=== PATIENT | male | born 1990 | race Caucasian/White ===

== ENCOUNTER 2018-03-02 10:16 | Emergency (ER) | payer SELFPAY ==
[2018-03-02 10:18] VITALS: BP 146/83; PULSE 85; RESP 17; TEMP 36.4; O2SAT 96; BMI 26.5
[2018-03-02] MEDS: 0.9% Normal Saline 1,000 ML 1000 ML IV (10:43)
[2018-03-02] MEDS: Ondansetron 4 MG/2 ML Vial IV (10:43)
[2018-03-02 11:03] LABS: Absolute Neutrophil Count 4.2 X10^3/uL (2.0-7.7); Basophil# 0.01 X10^3/uL; Basophil% 0.2 % (0-1); Eosinophil# 0.14 X10^3/uL; Eosinophils% 2.3 % (0-5); Hematocrit 49.1 % (40-54); Hemoglobin 17.4 g/dl (13.0-16.5); Lymphocyte % 19.9 % (19-41); Mean Corp Hgb Conc 35.4 g/gl (32-36); Mean Corpuscular Hgb 31.5 pg (27.0-32.0); Mean Corpuscular Volume 88.9 fL (80-94); Mean Platelet Vol. 9.1 fl (6.2-12.0); Monocyte# 0.45 X10^3/uL; Monocyte% 7.5 % (0-10); Neutrophil # 4.21 X10^3/uL (2.7-7.7); Neutrophil % 69.9 % (47-70); Platelet Count 182 K/mm3 (150-450); RBC Distribution Width CV 12.7 % (11.6-14.6); RBC Distribution Width SD 41.3 fl (35.1-43.9); Red Blood Count 5.52 M/mm3 (4.6-6.2)
[2018-03-02 11:09] LABS: POSITIVE COUNT NO; POSITIVE DIFFERENTIAL NO; POSITIVE MORPHOLOGY NO
[2018-03-02 11:15] LABS: ALB/GLOB Ratio 1.2 RATIO (0.9-2.4); AST(SGOT) 19 U/L (15-37); Alanine Aminotransfer ALT/SGPT 29 U/L (16-61); Albumin, Serum 4.3 g/dL (3.2-5.0); Alkaline Phosphatase 57 U/L (45-117); Anion Gap 6 (5-15); BUN 9 mg/dL (7-18); Chloride 106 mmol/L (98-107); Creatinine, Serum 1.13 mg/dL (0.70-1.30); EST Glomerular Filtration Rate 84 mL/min (>60); Est Glom Filt Rate - Afr Amer 102 mL/min (>60); Estimated Creatinine Clearance 90.18 ml/min; Globulin 3.7 g/dL (2.2-4.2); Glucose 130 mg/dL (74-106); Lipase 786 U/L (73-393); Potassium 4.1 mmol/L (3.5-5.1); Sodium Level 143 mmol/L (136-145)
--- NOTE | 2018-03-02 11:21 | CT_ITS ---
STUDY: CT ABDOMEN AND PELVIS WITH CONTRAST REASON FOR EXAM: Male, 27 years old. Abdominal pain. Nausea and vomiting. RADIATION DOSAGE (If Supplied By Facility): CTDIvol = ( 11.09 ) mGy, DLP = ( 434.87 ) mGycm TECHNIQUE: Transaxial images were obtained from the dome of the diaphragm to the symphysis pubis without oral contrast. 100 ml of Isovue 300 contrast was administered. Sagittal and coronal images were reconstructed. Individualized dose optimization techniques were used for this CT. COMPARISON: None. FINDINGS: The visualized lung bases are unremarkable. The visualized portions of the heart are within normal limits. Normal liver. Normal gallbladder and extrahepatic biliary system. Normal spleen. Normal pancreas. Normal bilateral adrenal glands. Normal right kidney. Normal left kidney. Normal visualized stomach. Normal small intestine. Normal colon. The appendix is visualized and appears normal. Normal abdominal aorta. Normal inferior vena cava. Normal retroperitoneum. Normal urinary bladder. Normal visualized prostate gland. There is a right-sided inguinal hernia containing adipose tissue. Normal osseous structures. CT/Abdomen/Pelvis WITH Contrast IMPRESSION: No acute findings. Unremarkable appendix. Fat-containing right inguinal hernia. Electronically Signed: Salvador Chapman DO at 12:18 EST Tel , Service support ,
[2018-03-02 12:28] VITALS: RESP 14
--- NOTE | 2018-03-02 12:32 | ED.VISSUMM ---
- ER Visit Summary Date of Service: 03/02/18 Chief Complaint: Abdominal pain with nausea and vomiting History of Present Illness: The patient is a 27 M who reports he has had nausea and vomiting daily since he was a teenager. He is also had small hard stool which is gotten worse the past year since moving out and living on his own. He denies fever, chills night sweats. Denies weight gain or weight loss. He denies visual, ocular auditory symptoms. He denies chest pain, palpitations, dyspnea on exertion, orthopnea or PND. He does have slight cough. He is a smoker. GI is remarkable for blood on toilet paper otherwise negative except for upper abdominal pain with nausea vomiting. negative muscular skeletal negative for myalgias arthralgias neck or back pain. No rash or lesions noted. No history of problems with bleeding or bruising. He denies rash, hives or angioedema. He denies headache, anesthesia, paresthesia or motor weakness. He does admit to daily alcohol use 3-4 3 packs of beer a day. He admits to 1 pack/day. He also admits to smoking marijuana. Present lives alone. He states he eats fast food and was concerned regarding small hard stool. Physical Examination: Vital signs remarkable for an elevated blood pressure 146/83. Head is atraumatic normocephalic. Pupils are equal round reactive. Extraocular muscles are intact. TMs are pearly white with landmarks noted. Nares patent with no drainage. Posterior pharynx without erythema or exudate. Uvula is midline. There is no dysphonia or dysphasia. Tongue and buccal mucosa are dry trachea is midline. There is no stridor with auscultation of the neck. Heart is regular without murmur, gallop or rub. S1 and S2 are normal. Lungs are clear to auscultation with good movement of air bilaterally. Abdomen is remarkable tenderness to left upper quadrant. There is no hepatospleno megaly. No petechia purpura noted. There is no CVA tenderness noted. Bowel sounds are diminished. There is no guarding or rebound tenderness. There is no evidence of umbilical hernia. There is a question of a right inguinal hernia. Neuro exam is nonfocal. Affect is normal. Test Results: CBC is remarkable for hemoglobin of 17.4 and may represent secondary polycythemia vera. BMP indicates elevated glucose of 130. There is no history of diabetes. Lipase is 76 which is [address] of the abdomen and pelvis with IV contrast reveals no evidence of pancreatitis or any acute pathology. Emergency Department Course and Treatment: With left upper quadrant pain history of daily alcohol use and elevated lipase CT was obtained to evaluate pancreatitis. Patient was informed the reason he is having small hard stool is secondary to his diet and specifically lack of fiber in his diet. Concern patient may have cyclic vomiting or functional cause of his vomiting since this is a daily problem since he was a teenager. Treatment Plan: Antiemetic, follow-up with Dr. Porter who is his doctor. Disposition: Discharge to home Impression: 1. Left upper quadrant pain with nausea and vomiting uncertain etiology 2. Elevated lipase uncertain etiology 3. Chronic daily vomiting 4. Tobacco use 5. Daily alcohol use 6. Elevated blood sugar nondiabetic This note was generated with [employer]crumb[employer] dictation software. It may contain incorrect words, spelling, and punctuation that were not noted in review of the chart prior to signing ED Disposition - Plan for ED Patient: Disposition: Home or Assisted Living Chief Complaint: Abd Pain Instructions: ED Abdominal Pain Unkn Cause Male, ED Nausea Vomiting, ED Hyperglycemia New Susp Diabetes Referrals: Enoch Porter, [Primary Care Provider] - 5-7 Days Additional Instructions: Your blood sugar is elevated. And since you have not eaten since yesterday this may indicate new onset diabetes. You will need to follow-up with your doctor for additional testing. It is in your best interest to stop smoking. It is in your best interest to decrease alcohol consumption. Because of your hard small stool is secondary to low fiber content. Recommend Metamucil 3 times a day for 1 week then twice daily. Also recommend increasing the fiber content in your diet.
[2018-03-02 12:51] VITALS: BP 133/76; PULSE 79; RESP 14; O2SAT 97
== END 2018-03-02 12:52 | disposition home or self-care (01) ==
PROVIDERS: Emergency Provider Emergency Medicine; Family Provider Family Medicine; PCP Family Medicine
DX: R10.12 Left upper quadrant pain (principal); R11.2 Nausea with vomiting, unspecified; R74.8 Abnormal levels of other serum enzymes; R73.9 Hyperglycemia, unspecified; F17.200 Nicotine dependence, unspecified, uncomplicated; F12.90 Cannabis use, unspecified, uncomplicated; Z72.89 Other problems related to lifestyle
CPT/HCPCS: 74177; 80053; 83690; 85025; 96361; 96374; 99283; J7030; Q9967; A4216; J2405

== ENCOUNTER 2018-11-02 01:48 | Observation (INO) | payer MEDICAID, SELFPAY ==
[2018-11-02] VITALS (15 sets, daily range): BP systolic 111–164; BP diastolic 71–100; PULSE 72–156; RESP 14–36; TEMP 36.6–36.7; O2SAT 87–100; BMI 23.3
--- NOTE | 2018-11-02 02:02 | ED.DCSUM_ITS ---
- ER Visit Summary Date of Service: 11/02/18 Chief Complaint: Agitation History of Present Illness: The patient is a 27 M who arrives with police and an extremely agitated state. They were called due to his violent outburst. He is paranoid and screaming that he is . There is questionable drug use. H istory is unable to be obtained for him due to his extremely agitated state. He is currently being restrained by police and will need to be placed in four-point restraints. Physical Examination: Patient is extremely agitated. He is tachycardic and diaphoretic. HEENT exam reveals dilated pupils. Heart is tachycardic and regular. His lungs are clear. His abdomen is soft and nondistended. His skin is intact with no signs of any trauma. He is agitated and screaming. He is repeating that I am . He has paranoid ideations and is very irritable. Test Results: White blood cell count 18, hemoglobin 17.5. Potassium 3.2. Creatinine 1.91, glucose 227. Tox screen reveals methamphetamines, amphetamines, benzodiazepines and cannabis. Alcohol level normal. Emergency Department Course and Treatment: Patient has excited delirium. For the safety of himself, police and staff he was given 350 mg of ketamine intramuscularly. He calmed down after this. His heart rate came down to below 100 after the medication. Upon reevaluation multiple hours later he was still delirious and now drowsy due to the medications. He will be reevaluated by the oncoming physician and dispositioned Treatment Plan: [] Disposition: Pending Impression: Excited delirium, polysubstance abuse This note was generated with Meet[employer] software. It may contain incorrect words, spelling, and punctuation that were not noted in review of the chart p rior to signing <Gordon Gillette - Last Filed: 11/02/18 06:31> - ER Visit Summary Date of Service: 11/02/18 Patient was signed out to me. On repeat evaluation he is sitting upright eating his breakfast. He reports hearing voices telling him to kill himself. He was seen and evaluated by crisis. He will require transfer to psychiatric facility. [facility]. We are awaiting acceptance at this time. This note was generated with Meetmeals software. It may contain incorrect words, spelling, and punctuation that were not noted in review of the chart prior to signing <Temi Dalton - Last Filed: 11/02/18 14:49> - ER Visit Summary Patient has been signed out through multiple physicians. At this time we are awaiting transfer to a psychiatric facility. However they requested that his CPK be rechecked. This was actually done yesterday and had increased but he did not receive any specific treatment. Therefore I did order IV fluids. I also ordered oral replacement of his potassium. We will recheck his labs including CBC, BMP, CPK after treatment. If these are improved and potassium and CPK have normalized I do believe he will be cleared for transfer at that point. I did also reevaluate the patient. He is calm and cooperative answering questions appropriately without complaint. This note was generated with Meetme[employer] software. It may contain incorrect words, spelling, and punctuation that were not noted in review of the chart prior to signing <Vinnie Noel - Last Filed: 11/03/18 04:55> - ER Visit Summary Date of Service: 11/03/18 Recheck of his CPK after 1 L fluid shows that his creatinine is normalized. The CPK is coming down but is still greater than 1000. We will give an additional 3 L of fluid and reassess. This note was generated with [employer] software. It may contain incorrect words, spelling, and punctuation that were not noted in review of the chart prior to signing <Octaviano Horne - Last Filed: 11/03/18 08:03> - ER Visit Summary Date of Service: 11/03/18 Emergency Department Course and Treatment: Patient was promoted to me. Patient was still getting his IV fluids. Repeat CPK was drawn after his IV fluids were completed. Repeat CPK increased to 1076. Patient was given 1 amp of bicarb. Case was discussed with Dr. Hopper. She will be in to evaluate the patient and admit the patient to the hospital. Disposition: Admit to hospital Impression: 1. Rhabdomyolysis This note was generated with Meet[employer] software. It may contain incorrect words, spelling, and punctuation that were not noted in review of the chart prior to signing <Charles Velazquez - Last Filed: 11/03/18 17:54> ED Disposition <Gordon Gillette - Last Filed: 11/02/18 06:31> <Temi Dalton - Last Filed: 11/02/18 14:49> <Vinnie Noel - Last Filed: 11/03/18 04:55> <Octaviano Horne - Last Filed: 11/03/18 08:03> <Charles Velazquez - Last Filed: 11/03/18 17:54> - Plan for ED Patient: Disposition: Acute Care [facility] Diagnosis: Rhabdomyolysis Referrals: Enoch Porter DO [Primary Care Provider] -
--- NOTE | 2018-11-02 02:27 | ED.RN ---
PT ARRIVES TO ED BY [employer] IN [place]USTODY IN [place]. [employer] TO REMOVE HANDCUFFS AND PATIENT TRIES TO LEAVE THE ROOM. [facility] STAFF AND [employer] REDIRECT PATIENT TO SIT ON THE BED. PT REFUSES. PT STILL TRYING TO LEAVE THE ROOM. [employer] REDIRECTS PATIENT TO BED AND PATIENT BECOMES PHYSICALLY VIOLENT AND SHOUTING I'M , I'M . RN TRIES TO REORIENT PATIENT TO PLACE & SAFETY AT THE HOSPITAL AND THAT NO ONE IS TRYING TO KILL HIM. PT GETTING MORE AGITATED AND FIGHTING WITH POLICE. DR MITCHELL AT BEDSIDE AND BELIEVES PATIENT IS UNDER THE INFLUENCE OF DRUGS. DR. MITCHELL ORDERS RESTRAINTS TO PROTECT PATIENT FROM INJURING HIMSELF AND THE STAFF AT THE BEDSIDE. [employer] TACKLE PATIENT TO THE BED AND RESTRAINTS ARE APPLIED. PT STILL THRASHING ON THE BED STATING SOMEONE IS TRYING TO KILL ME RN CONTINUES TO REORIENT PATIENT TO SAFETY. RN WILL CONTINUE TO MONITOR.
[2018-11-02 02:34] LABS: Anion Gap 21 (5-15); BUN 11 mg/dL (7-18); BUN/Creat Ratio 5.8 RATIO (10-20); Calcium,Total 9.1 mg/dL (8.5-10.1); Chloride 97 mmol/L (98-107); Creatinine, Serum 1.91 mg/dL (0.70-1.30); EST Glomerular Filtration Rate 46 mL/min (>60); Est Glom Filt Rate - Afr Amer 55 mL/min (>60); Estimated Creatinine Clearance 61.05 ml/min; Glucose 227 mg/dL (74-106); Potassium 3.2 mmol/L (3.5-5.1); Sodium Level 136 mmol/L (136-145)
[2018-11-02 03:11] LABS: Absolute Lymphocyte Count 1.66 X10^3/uL (0.83-4.51); Basophil# 0.04 X10^3/uL; Basophil% 0.2 % (0-1); Eosinophil# 0.02 X10^3/uL; Eosinophils% 0.1 % (0-5); Hematocrit 49.8 % (40-54); Hemoglobin 17.5 g/dL (13.0-16.5); Lymphocyte # 1.66 X10^3/ul (4.0); Lymphocyte % 9.2 % (19-41); Mean Corp Hgb Conc 35.1 g/dL (32-36); Mean Corpuscular Hgb 31.2 pg (27.0-32.0); Mean Corpuscular Volume 88.8 fL (80-94); Mean Platelet Vol. 9.6 fl (6.2-12.0); Monocyte# 1.19 X10^3/uL; Monocyte% 6.6 % (0-10); NRBC Flagged by Analyzer 0 % (0-5); Neutrophil # 15.03 X10^3/uL (2.7-7.7); Neutrophil % 83.5 % (47-70); Platelet Count 354 K/mm3 (150-450); RBC Distribution Width CV 11.5 % (11.6-14.6); RBC Distribution Width SD 37.1 fl (35.1-43.9); Red Blood Count 5.61 M/mm3 (4.6-6.2)
[2018-11-02 03:49] LABS: Amphetamine Urine VISTA POSITIVE (<1000 ng/mL); Barbiturate Urine VISTA NEGATIVE (< 200 ng/mL); Benzodiazepine Urine VISTA POSITIVE (< 200 ng/mL); Cocaine Urine VISTA NEGATIVE (< 300 ng/mL); Ecstacy Urine VISTA POSITIVE (< 500 ng/mL); Methadone Urine VISTA NEGATIVE (< 300 ng/mL); PCP Urine VISTA NEGATIVE (< 25 ng/mL); THC Urine VISTA POSITIVE (< 50 ng/mL); Vista UDS pH Range 5
--- NOTE | 2018-11-02 10:38 | ED.RN ---
CRISIS AWARE PT IS READY TO BE EVALUATED
--- NOTE | 2018-11-02 13:55 | EKG12_ITS ---
Test Reason : MEDICAL CLEARANCE Blood Pressure : / mmHG Vent. Rate : 080 BPM Atrial Rate : 080 BPM P-R Int : 142 ms QRS Dur : 102 ms QT Int : 376 ms P-R-T Axes : 068 078 078 degrees QTc Int : 433 ms Normal sinus rhythm RSR' or QR pattern in V1 suggests right ventricular conduction delay Borderline ECG Confirmed by SERGE RUIZ, JOS ([id number]), telegraph editor YAKELIN VELAZQUEZ ([id number]) on 11/05/2018 8:57:31 AM Referred By: Ghazal Hopper Confirmed By:JOS VALENTINE MD
[2018-11-02 14:27] LABS: AST(SGOT) 18 U/L (15-37); Alanine Aminotransfer ALT/SGPT 24 U/L (16-61); Albumin, Serum 4.2 g/dL (3.2-5.0); Alkaline Phosphatase 68 U/L (45-117); Bilirubin, Direct 0.27 mg/dL (0.00-0.30); CPK Total, Creatine Kinase 372 U/L (39-308); Globulin 4.1 g/dL (2.2-4.2); Protein, Total 8.3 g/dL (6.4-8.2)
[2018-11-02 16:34] LABS: Bacteria 0 SEEN /hpf (None Seen); Mucous, Urine 0 SEEN /hpf (<or=2+); Red Blood Cells-Urine 0 SEEN /hpf (0-5); Squamous Epithelial Cells - UA 0 SEEN /hpf (0-5); White Blood Cells 0 SEEN /hpf (0-5)
[2018-11-02 16:36] LABS: Color, Urine Yellow (Yellow); Glucose, Dipstick Normal (Normal); Ketone-Dipstick 5 mg/dl (Negative); Leukocyte Esterase-Dipstick 25 /ul (Negative); Nitrite-Dipstick Negative (Negative); Occult Blood-Urine 10 /ul (Negative); Protein-Dipstick 30 mg/dl (Negative); Urine Bilirubin Dipstick 1 mg/dL (Negative); Urine Clarity Turbid (Clear); Urine Urobilinogen 1 mg/dl (Normal)
[2018-11-02 16:41] LABS: Amorphous Sediment 4+
[2018-11-02] MEDS: Acetaminophen 325 MG Tablet 650 MG PO (16:45)
[2018-11-02 18:09] LABS: CPK Total, Creatine Kinase 1422 U/L (39-308)
--- NOTE | 2018-11-02 18:22 | ED.RN ---
[facility]VIN WITH CRISIS IS HERE TO EVAL AND WORK ON PLACEMENT FOR PT
[2018-11-02] MEDS: Ziprasidone IM 20 MG/ML VIAL IM (18:58)
[2018-11-03] VITALS (18 sets, daily range): BP systolic 107–136; BP diastolic 58–88; PULSE 64–83; RESP 16–20; TEMP 36.7–37.2; O2SAT 95–99; BMI 23.5
[2018-11-03] MEDS: 0.9% Normal Saline 1,000 ML 999 ML IV ×6 (05:06→16:07)
--- NOTE | 2018-11-03 05:10 | ED.RN ---
[facility] CALLED AND STATED THAT PATIENT NEEDS TO HAVE IS TCK BELOW 500 AND HIS POTASSIUM NEEDS TREATED. HIS TCK WAS TAKEN YESTERDAY AND IT WAS 1422 WHICH WAS UP FROM 372. THIS WASN'T ADDRESSED YESTERDAY SO THIS NURSE TOLD DR. MULLEN. HE ORDERED AN IV, FLUIDS AND ORAL POTASSIUM. HIS TCK WILL BE RECHECKED AFTER THE FLUIDS.
[2018-11-03 06:57] LABS: Absolute Lymphocyte Count 1.82 X10^3/uL (0.83-4.51); Absolute Neutrophil Count 3.5 X10^3/uL (2.0-7.7); Basophil# 0.03 X10^3/uL; Basophil% 0.5 % (0-1); Eosinophil# 0.17 X10^3/uL; Eosinophils% 2.7 % (0-5); Hematocrit 43.4 % (40-54); Hemoglobin 15.1 g/dL (13.0-16.5); Lymphocyte # 1.82 X10^3/ul (4.0); Lymphocyte % 29.4 % (19-41); Mean Corp Hgb Conc 34.8 g/dL (32-36); Mean Corpuscular Hgb 30.9 pg (27.0-32.0); Mean Corpuscular Volume 88.9 fL (80-94); Mean Platelet Vol. 9.1 fl (6.2-12.0); Monocyte# 0.63 X10^3/uL; Monocyte% 10.2 % (0-10); NRBC Flagged by Analyzer 0 % (0-5); Neutrophil # 3.52 X10^3/uL (2.7-7.7); Neutrophil % 56.9 % (47-70); Platelet Count 170 K/mm3 (150-450); RBC Distribution Width CV 11.7 % (11.6-14.6); RBC Distribution Width SD 37.2 fl (35.1-43.9); Red Blood Count 4.88 M/mm3 (4.6-6.2); White Blood Count 6.2 K/mm3 (4.4-11.0)
[2018-11-03 07:32] LABS: Anion Gap 6 (5-15); BUN 14 mg/dL (7-18); BUN/Creat Ratio 13.9 RATIO (10-20); CPK Total, Creatine Kinase 1189 U/L (39-308); Calcium,Total 8.4 mg/dL (8.5-10.1); Chloride 107 mmol/L (98-107); Creatinine, Serum 1.01 mg/dL (0.70-1.30); EST Glomerular Filtration Rate 95 mL/min (>60); Est Glom Filt Rate - Afr Amer 115 mL/min (>60); Estimated Creatinine Clearance 115.44 ml/min; Glucose 105 mg/dL (74-106); Potassium 3.9 mmol/L (3.5-5.1); Sodium Level 142 mmol/L (136-145)
--- NOTE | 2018-11-03 12:40 | ED.RN ---
PT WALKED TO THE BATHROOM WITH SITTER, GIVEN BATH WIPES AND TOOTHBRUSH. SUPERVISED AT ALL TIMES. NEW GOWN AND SOCKS GIVEN. ORDERED LUNCH FOR PT. DENIES FURTHER NEEDS AT THIS TIME.
[2018-11-03 13:05] LABS: CPK Total, Creatine Kinase 927 U/L (39-308)
[2018-11-03] MEDS: LORazepam 1 MG Tablet PO (14:09)
[2018-11-03 17:27] LABS: CPK Total, Creatine Kinase 1076 U/L (39-308)
--- NOTE | 2018-11-03 17:50 | NURSING ---
DR BUENROSTRO FOR DR ZARAGOZA
--- NOTE | 2018-11-03 18:00 | NURSING ---
ICU OBS RHABDOMYOLYSIS
--- NOTE | 2018-11-03 18:06 | PCM.HP.STD ---
Problem List (1) Rhabdomyolysis Status: Acute (2) KASHIF (acute kidney injury) Status: Acute (3) Psychosis Status: Acute (4) Polysubstance abuse Status: Chronic (5) Depression Status: Chronic (6) Nicotine abuse Status: Chronic History of Present Illness Date of Admission: 11/03/18 Chief Complaint: altered mental status The patient is a 27 year old M with pmhx of depression formerly on prozac who presented to the ER with the police for agitation. Police were called for a violent outburst. He was screaming that he was . Later he said he heard voices telling him to kill himself. He currently denies intent to hurt himself. He states he was partying Saturday night and used meth, pot, xanax, and was drinking. He then remembers being brought to the ER. He was found to have rhabdo and KASHIF, and tested positive for amphetamines, meth, benzos, cannabis. He was seen by crisis who recommended inpatient psych. His KASHIF resolved with 5 liters fluids, however he still has an elevated total CK and he cannot go to [facility] until this resolves. Currently he is calm. He feels that he is having some alcohol withdrawal. He is tremulous, and fatigued. He has no CP, palp, SOB, LH, dizziness, no N/V/D/abdominal pain. [] Past Medical History Past Medical History (Chronic Problems): Chronic Problems Polysubstance abuse (Chronic) Depression (Chronic) Nicotine abuse (Chronic) Allergies No Known Allergies Allergy (Verified 11/02/18 02:08) Home Medications: Ambulatory Orders Medication Instructions Recorded NK 03/02/18 Surgical History: - - lip surgery after trauma Psychiatric History: Depression Lives: Alone Smoking Status: Current every day smoker Tobacco Use: Cigarettes - 1 ppd Alcohol: Heavy - 6 large bud ice per day - *Family History Maternal History Items: - - drug abuse Paternal History Items: - - drug abuse Review of Systems Constitutional: Denies: Chills, Fever, Weight Change HEENT: Denies: Head Aches, Sinus Congestion, Sinus Drainage Cardiovascular: Denies: Chest Pain, Palpitations Respiratory: Denies: Cough, Shortness of breath at rest, Sputum production Gastrointestinal: Denies: Abdominal Pain, Nausea, Vomiting Genitourinary: Denies: Dysuria Musculoskeletal: Denies: Joint Pain, Joint Tenderness Skin: Denies: Rash, Wounds Neurological: Reports: Tremor. Denies: Focal weakness, Numbness, Tingling Psychiatric: Denies: Anxiety, Depression, Homicidal Ideations, Suicidal Ideations Hematologic/ Lymphatic: Denies: Easy Bruising, Easy Bleeding VTE Information - Inpt Only VTE Present on Admission: No VTE Mechan Device Prophylaxis: None VTE Pharm Prophylaxis ordered?: No Reason prophylaxis not ordered:: Procedure Not Indicated Patient Problems: Active and Suspected Problems Rhabdomyolysis (Acute) KASHIF (acute kidney injury) (Acute) Psychosis (Acute) - Physical Exam General: Alert, Oriented x3, Cooperative, - - disheveled HEENT: Atraumatic, PERRLA, EOMI, Normocephalic Neck: Supple, No JVD, Negative Carotid Bruits Lungs: Clear to auscultation, Normal air movement Cardiovascular: Regular rate, No murmurs Abdomen: Bowel Sounds Present, Soft, Non Tender Extremities: No edema, Capillary Refill Less than 3 Seconds Skin: No rashes, No breakdown Musculoskeletal: No Tenderness to Palpation of Joints or Extremities Neurological: Cranial nerves II-XII grossly intact Psych/Mental Status: Normal Affect, Appropriate, Alert and oriented to time, place, person, mood and affect Vital Signs Temp Pulse Resp BP Pulse Ox 98.1 F 75 18 117/61 99 11/03/18 03:27 11/03/18 15:00 11/03/18 15:00 11/03/18 15:00 11/03/18 15:00 Oxygen Flow Rate (L/min) 3 Oxygen Delivery Method Room Air Weight: 162 lb 4.163 oz Body Mass Index (BMI) 23.3 Laboratory Tests Past 24 Hrs 11/02/18 11/03/18 11/03/18 17:15 06:45 06:45 WBC 6.2 RBC 4.88 Hgb 15.1 Hct 43.4 MCV 88.9 MCH 30.9 MCHC 34.8 RDW Std Deviation 37.2 RDW Coeff of Timothy 11.7 Plt Count 170 MPV 9.1 Immature Gran % (Auto) 0.300 Neut % (Auto) 56.9 Lymph % (Auto) 29.4 [place] % (Auto) 10.2 H Eos % (Auto) 2.7 Baso % (Auto) 0.5 Absolute Neuts (auto) 3.5 Absolute Lymphs (auto) 1.82 Nucleated RBC % 0 Sodium 142 Potassium 3.9 Chloride 107 Carbon Dioxide 29.0 Anion Gap 6 BUN 14 Creatinine 1.01 Estim Creat Clear Calc 115.44 Est GFR (MDRD) Af Amer 115 Est GFR (MDRD) Non-Af 95 BUN/Creatinine Ratio 13.9 Glucose 105 Calcium 8.4 L Total Creatine Kinase 1422 H 1189 H 11/03/18 11/03/18 12:25 16:50 WBC RBC Hgb Hct MCV MCH MCHC RDW Std Deviation RDW Coeff of Timothy Plt Count MPV Immature Gran % (Auto) Neut % (Auto) Lymph % (Auto) [place] % (Auto) Eos % (Auto) Baso % (Auto) Absolute Neuts (auto) Absolute Lymphs (auto) Nucleated RBC % Sodium Potassium Chloride Carbon Dioxide Anion Gap BUN Creatinine Estim Creat Clear Calc Est GFR (MDRD) Af Amer Est GFR (MDRD) Non-Af BUN/Creatinine Ratio Glucose Calcium Total Creatine Kinase 927 H 1076 H Assessment/Plan All Active Problems Rhabdomyolysis (Acute) KASHIF (acute kidney injury) (Acute) Psychosis (Acute) 1. KASHIF and rhabdomyolysis - 2/2 polysubstance use, amphetamines, alcohol, xanax, pot. EKG negative. Leukocytosis resolved. Hypokalemia resolved. Hyperglycemia resolved. 2. Psychosis and SI - He was violent, highly agitated, had paranoid thoughts at presentation and at one point states voices were telling him to kill himself. He denies any intention of hurting himself at this point. Crisis following. 3. Questionable alcohol withdrawal - drinks 6 large heavy beers per day. He is tremulous and verbally states he feels like he is in alcohol withdrawal 4. Nicotine abuse - smokes 1 ppd - patch 5. Depression - formerly on prozac, not treated as outpatient now. DVT ppx: early ambulation DC planning: [place] for psychiatric workup. This patient was seen by Ton Hughes PA-C under the supervision of Dr. Hopper.
[2018-11-03] MEDS: 0.9% Normal Saline 1,000 ML 150 ML IV (18:55)
[2018-11-03 19:01] LABS: Magnesium 1.9 mg/dL (1.6-2.6); Phosphorus 2.6 mg/dL (2.5-4.9)
[2018-11-03] MEDS: LORazepam 2 MG/ML Syringe IV (20:09)
[2018-11-03] MEDS: Sodium Bicarbonate 8.4% 50 ML Syringe 50 MEQ IV (20:12)
[2018-11-04] VITALS (7 sets, daily range): BP systolic 126–152; BP diastolic 69–86; PULSE 63–89; RESP 14–16; TEMP 36.6–37.1; O2SAT 97
[2018-11-04] MEDS: 0.9% Normal Saline 1,000 ML 150 ML IV ×3 (00:54→14:02)
[2018-11-04] MEDS: LORazepam 1 MG Tablet 2 MG PO (01:01)
[2018-11-04] MEDS: Acetaminophen 325 MG Tablet 650 MG PO (04:47)
[2018-11-04 06:46] LABS: Absolute Lymphocyte Count 2.06 X10^3/uL (0.83-4.51); Basophil# 0.03 X10^3/uL; Basophil% 0.4 % (0-1); Eosinophil# 0.18 X10^3/uL; Eosinophils% 2.3 % (0-5); Hematocrit 43.1 % (40-54); Hemoglobin 15.2 g/dL (13.0-16.5); Lymphocyte # 2.06 X10^3/ul (4.0); Lymphocyte % 26.1 % (19-41); Mean Corp Hgb Conc 35.3 g/dL (32-36); Mean Corpuscular Hgb 30.8 pg (27.0-32.0); Mean Corpuscular Volume 87.4 fL (80-94); Mean Platelet Vol. 9.2 fl (6.2-12.0); Monocyte# 0.59 X10^3/uL; Monocyte% 7.5 % (0-10); NRBC Flagged by Analyzer 0 % (0-5); Neutrophil % 63.4 % (47-70); Platelet Count 181 K/mm3 (150-450); RBC Distribution Width CV 11.8 % (11.6-14.6); RBC Distribution Width SD 37.5 fl (35.1-43.9); Red Blood Count 4.93 M/mm3 (4.6-6.2); White Blood Count 7.9 K/mm3 (4.4-11.0)
[2018-11-04 07:12] LABS: AST(SGOT) 33 U/L (15-37); Alanine Aminotransfer ALT/SGPT 33 U/L (16-61); Albumin, Serum 3.1 g/dL (3.2-5.0); Alkaline Phosphatase 44 U/L (45-117); Anion Gap 5 (5-15); BUN 7 mg/dL (7-18); BUN/Creat Ratio 9.2 RATIO (10-20); CPK Total, Creatine Kinase 808 U/L (39-308); Calcium,Total 8.4 mg/dL (8.5-10.1); Chloride 110 mmol/L (98-107); Creatinine, Serum 0.76 mg/dL (0.70-1.30); EST Glomerular Filtration Rate 131 mL/min (>60); Est Glom Filt Rate - Afr Amer 159 mL/min (>60); Estimated Creatinine Clearance 153.42 ml/min; Glucose 91 mg/dL (74-106); Protein, Total 6.1 g/dL (6.4-8.2); Sodium Level 142 mmol/L (136-145)
[2018-11-04] MEDS: Folic Acid 1 MG Tablet PO (08:32)
[2018-11-04] MEDS: Thiamine Hydrochloride 100 MG Tablet PO ×2 (08:32→16:21)
[2018-11-04] MEDS: Multivitamins,Ther W-Minerals Tablet 1 TABLET PO (08:32)
[2018-11-04] MEDS: Magnesium Oxide 400 MG Tablet 800 MG PO (08:58)
[2018-11-04] MEDS: Mag Hydrox/Al Hydrox/Simeth 30 ML UDC PO (11:16)
[2018-11-04] MEDS: LORazepam 0.5 MG Tablet PO (11:16)
[2018-11-04 13:37] LABS: CPK Total, Creatine Kinase 729 U/L (39-308)
--- NOTE | 2018-11-04 15:10 | NURSING ---
Crisis to assess patient. Patient no longer suicidal, sitter removed.
--- NOTE | 2018-11-04 15:42 | DCINST_ITS ---
- Discharge Diagnoses Current Active Problems: Current Active and Chronic Problems Rhabdomyolysis (Acute) KASHIF (acute kidney injury) (Acute) Psychosis (Acute) Polysubstance abuse (Chronic) Depression (Chronic) Nicotine abuse (Chronic) You will use the following diet at home:: No restrictions, Other - No alcohol Your food should be the consistency of: Regular Your liquids should be the consistency of: Regular/Thin Discharge Activity: Return to Normal Activity, - - No driving while using drugs or alcohol Additional Instructions: Be sure to stay well hydrated especially the first few days you are at home. Allergies/Adverse Reactions: Allergies No Known Allergies Allergy (Verified 11/02/18 02:08) Medications to take at Discharge NK 03/02/18 Primary Care Physician: Enoch Porter DO [Primary Care Provider] - Please follow up with your Primary Care Physician in: 1-2 weeks Test Results: Test results from this visit will be discussed in further detail at your follow- up appointment, if applicable. Please Follow Up With: Counseling,Center When: 1-2 weeks Proposed Discharge Date: 11/04/18
--- NOTE | 2018-11-04 15:44 | DS.PCM_ITS ---
<Ton Hughes - Last Filed: 11/04/18 15:44> Discharge Date and Diagnosis - Problem List Patient Problems: Active and Suspected Problems Rhabdomyolysis (Acute) KASHIF (acute kidney injury) (Acute) Psychosis (Acute) Date of Admission: 11/03/18 Date of Discharge: 11/04/18 - Primary Discharge Diagnosis Active and Suspected Problems Rhabdomyolysis (Acute) KASHIF (acute kidney injury) (Acute) Psychosis (Acute) 2/2 polysubstance intoxication Alcoholism Nicotine abuse Depression - Secondary Discharge Diagnosis Chronic Problems Polysubstance abuse (Chronic) Depression (Chronic) Nicotine abuse (Chronic) Hospital Course and Treatment Consults: Crisis/Mental health Operations: None Procedures: None Summary of Care Provided: Hospital Course: The patient is a 27 year old M with pmhx of depression and polysubstance abuse, who was brought to the ER by the police. Police were called after a violent outburts. He had been partying at home drinking copious amounts of alcohol and he was also using meth. He thinks the meth had other drugs in it as well but he was not sure. He was very agitated from the meth and his mother gave him a xanax to take. This did not help. In the ER he was screaming that he was , and also made a comment that voices had told him to kill himself. He was found to have KASHIF and rhabdo which were attributed to the drugs and alcohol. He was given IV fluids and kept in the ER with serial CK levels. The plan was initially to send him from the ER for a mental health eval at [facility] however he could not as his CK levels were persistently high. He was placed in the PCU overnight and given further IV fluids. By the time of admission he was sober but tremulous and lethargic. He had no issues overnight. CK did improve but is not normal yet. He denies any intention of hurting himself. Crisis evaluated him and felt he did n ot need inpatient psychiatry at this time. He was discharged home in stable condition. He will need to follow up with his PCP in 1-2 weeks and was provided with information to seek counselling services. This patient was seen by Ton Hughes PA-C under the supervision of Dr. Berg. [] Patient Problems: Active and Suspected Problems Rhabdomyolysis (Acute) KASHIF (acute kidney injury) (Acute) Psychosis (Acute) - Physical Exam General: Alert, Oriented x3, Cooperative, - - disheveled HEENT: Atraumatic, PERRLA, EOMI, Normocephalic Neck: Supple, No JVD, Negative Carotid Bruits Lungs: Clear to auscultation, Normal air movement Cardiovascular: Regular rate, No murmurs Abdomen: Bowel Sounds Present, Soft, Non Tender Extremities: No edema, Capillary Refill Less than 3 Seconds Skin: No rashes, No breakdown Musculoskeletal: No Tenderness to Palpation of Joints or Extremities Neurological: Cranial nerves II-XII grossly intact Psych/Mental Status: Normal Affect, Appropriate Vital Signs Temp Pulse Resp BP Pulse Ox 98.4 F 85 14 152/86 H 97 11/04/18 15:31 11/04/18 15:31 11/04/18 15:31 11/04/18 15:31 11/04/18 15:31 Oxygen Flow Rate (L/min) 3 Oxygen Delivery Method Room Air Weight: 164 lb 7.437 oz Body Mass Index (BMI) 23.5 Intake and Output for Last 24 Hours 11/02/18 11/03/18 11/04/18 23:59 23:59 23:59 Intake Total 360 / 360 2531 / 2531 Balance 360 / 360 2531 / 2531 Laboratory Tests Past 24 Hrs 11/03/18 11/03/18 11/04/18 16:50 16:50 06:28 WBC 7.9 RBC 4.93 Hgb 15.2 Hct 43.1 MCV 87.4 MCH 30.8 MCHC 35.3 RDW Std Deviation 37.5 RDW Coeff of Timothy 11.8 Plt Count 181 MPV 9.2 Immature Gran % (Auto) 0.300 Neut % (Auto) 63.4 Lymph % (Auto) 26.1 [place] % (Auto) 7.5 Eos % (Auto) 2.3 Baso % (Auto) 0.4 Absolute Neuts (auto) 5.0 Absolute Lymphs (auto) 2.06 Nucleated RBC % 0 Sodium Potassium Chloride Carbon Dioxide Anion Gap BUN Creatinine Estim Creat Clear Calc Est GFR (MDRD) Af Amer Est GFR (MDRD) Non-Af BUN/Creatinine Ratio Glucose Calcium Phosphorus 2.6 Magnesium 1.9 Total Bilirubin AST ALT Alkaline Phosphatase Total Creatine Kinase 1076 H Total Protein Albumin Globulin Albumin/Globulin Ratio 11/04/18 11/04/18 06:28 12:24 WBC RBC Hgb Hct MCV MCH MCHC RDW Std Deviation RDW Coeff of Timothy Plt Count MPV Immature Gran % (Auto) Neut % (Auto) Lymph % (Auto) [place] % (Auto) Eos % (Auto) Baso % (Auto) Absolute Neuts (auto) Absolute Lymphs (auto) Nucleated RBC % Sodium 142 Potassium 4.0 Chloride 110 H Carbon Dioxide 27.0 Anion Gap 5 BUN 7 Creatinine 0.76 Estim Creat Clear Calc 153.42 Est GFR (MDRD) Af Amer 159 Est GFR (MDRD) Non-Af 131 BUN/Creatinine Ratio 9.2 L Glucose 91 Calcium 8.4 L Phosphorus Magnesium Total Bilirubin 0.40 AST 33 ALT 33 Alkaline Phosphatase 44 L Total Creatine Kinase 808 H 729 H Total Protein 6.1 L Albumin 3.1 L Globulin 3.0 Albumin/Globulin Ratio 1.0 Discharge Diet: No Restrictions, - - no alcohol Discharge Activity: Return to Normal Activity, - - No driving while using drugs or alcohol Home Medications: Medications to take at Discharge NK 03/02/18 Primary Care Physician: Enoch Porter DO [Primary Care Provider] - Please follow up with your Primary Care Physician in: 1-2 weeks Please Follow Up With: Counseling,Center When: 1-2 weeks Disposition: Home Minutes spent on discharge:: 35 Patient Condition:: Stable Medical Necessity - Tobacco Use Smoking Status: Current every day smoker Tobacco Use: Cigarettes Meaningful Use Info Meaningful Use Diagnoses (Choose all that apply): None applicable <Charles Berg - Last Filed: 11/04/18 16:07> Discharge Date and Diagnosis - Primary Discharge Diagnosis Active and Suspected Problems Rhabdomyolysis (Acute) KASHIF (acute kidney injury) (Acute) Psychosis (Acute) - Secondary Discharge Diagnosis Chronic Problems Polysubstance abuse (Chronic) Depression (Chronic) Nicotine abuse (Chronic) Hospital Course and Treatment Operations: None Procedures: None Summary of Care Provided: Patient seen and examined independently. Data reviewed. I agree with the above note by the physician medical assistant secretary. The patient is a 27 year old M presents with psychosis. Patient was noted to be very agitated consuming drugs. Received Xanax by his mother and presented to the emergency room where he was screaming and stating that he was kill himself but was very agitated. Patient was monitored in the emergency room but did have rhabdomyolysis which did require IV fluids. Patient was then brought in to the hospital and observed. On the patient was normal and denies any suicidal nor homicidal ideation. His hospitalization was otherwise uncomplicated. Patient was seen by crisis who deemed that he was not a candidate for inpatient psychiatric unit where he was initially felt to be so through the emergency room. Is the feeling of crisis as well as myself that this was a psychotic episode induced by his drug consumption. Patient is not a threat to himself nor others at this time. Patient did express remorse and does state that he want to be sober. Referral and information was given to the patient by crisis about the 180 program. - Physical Exam General: Alert, Cooperative, - HEENT: Atraumatic, Normocephalic Neck: No Nodes, Thyroid Normal Size and Texture Lungs: Clear to auscultation, Normal air movement, No rhonchi, No wheeze Cardiovascular: Regular rate, Regular Rhythm, Normal S1, Normal S2, No murmurs Abdomen: Bowel Sounds Present, Soft, Non Tender, Non-Distended, No Hepato- splenomegaly Extremities: No edema, No Calf Tenderness Skin: No rashes, No breakdown Musculoskeletal: No Tenderness to Palpation of Joints or Extremities, No Muscle Wasting Psych/Mental Status: Appropriate, Flat Affect Vital Signs Temp Pulse Resp BP Pulse Ox 36.9 C 85 14 152/86 H 97 11/04/18 15:31 11/04/18 15:31 11/04/18 15:31 11/04/18 15:31 11/04/18 15:31 Oxygen Flow Rate (L/min) 3 Oxygen Delivery Method Room Air Weight: 74.6 kg Body Mass Index (BMI) 23.5 Intake and Output for Last 24 Hours 11/02/18 11/03/18 11/04/18 23:59 23:59 23:59 Intake Total 360 / 360 2531 / 2531 Balance 360 / 360 2531 / 2531 Laboratory Tests Past 24 Hrs 11/03/18 11/03/18 11/04/18 16:50 16:50 06:28 WBC 7.9 RBC 4.93 Hgb 15.2 Hct 43.1 MCV 87.4 MCH 30.8 MCHC 35.3 RDW Std Deviation 37.5 RDW Coeff of Timothy 11.8 Plt Count 181 MPV 9.2 Immature Gran % (Auto) 0.300 Neut % (Auto) 63.4 Lymph % (Auto) 26.1 [place] % (Auto) 7.5 Eos % (Auto) 2.3 Baso % (Auto) 0.4 Absolute Neuts (auto) 5.0 Absolute Lymphs (auto) 2.06 Nucleated RBC % 0 Sodium Potassium Chloride Carbon Dioxide Anion Gap BUN Creatinine Estim Creat Clear Calc Est GFR (MDRD) Af Amer Est GFR (MDRD) Non-Af BUN/Creatinine Ratio Glucose Calcium Phosphorus 2.6 Magnesium 1.9 Total Bilirubin AST ALT Alkaline Phosphatase Total Creatine Kinase 1076 H Total Protein Albumin Globulin Albumin/Globulin Ratio 11/04/18 11/04/18 06:28 12:24 WBC RBC Hgb Hct MCV MCH MCHC RDW Std Deviation RDW Coeff of Timothy Plt Count MPV Immature Gran % (Auto) Neut % (Auto) Lymph % (Auto) [place] % (Auto) Eos % (Auto) Baso % (Auto) Absolute Neuts (auto) Absolute Lymphs (auto) Nucleated RBC % Sodium 142 Potassium 4.0 Chloride 110 H Carbon Dioxide 27.0 Anion Gap 5 BUN 7 Creatinine 0.76 Estim Creat Clear Calc 153.42 Est GFR (MDRD) Af Amer 159 Est GFR (MDRD) Non-Af 131 BUN/Creatinine Ratio 9.2 L Glucose 91 Calcium 8.4 L Phosphorus Magnesium Total Bilirubin 0.40 AST 33 ALT 33 Alkaline Phosphatase 44 L Total Creatine Kinase 808 H 729 H Total Protein 6.1 L Albumin 3.1 L Globulin 3.0 Albumin/Globulin Ratio 1.0 Discharge Diet: No Restrictions, - Discharge Activity: Return to Normal Activity, - Disposition: Home Minutes spent on discharge:: 35 Patient Condition:: Stable Medical Necessity - Tobacco Use Smoking Status: Current every day smoker Tobacco Use: Cigarettes Meaningful Use Info Meaningful Use Diagnoses (Choose all that apply): None applicable Code Visit OBSV E&M: 81132 Observation care discharge
== END 2018-11-04 15:43 | disposition home or self-care (01) ==
LOC: ED 11-03 17:54 → PCU 11-03 18:13
PROVIDERS: Emergency Medicine; Physician Assistant; Admitting Provider Family Medicine; Emergency Provider Emergency Medicine; Family Provider Family Medicine; PCP Family Medicine; Referring Provider Family Medicine
DX: M62.82 Rhabdomyolysis (principal); N17.9 Acute kidney failure, unspecified; F15.159 Other stimulant abuse with stimulant-induced psychotic disorder, unspecified; Z78.1 Physical restraint status; R45.851 Suicidal ideations; Y90.0 Blood alcohol level of less than 20 mg/100 ml; F32.9 Major depressive disorder, single episode, unspecified; F41.9 Anxiety disorder, unspecified; F17.210 Nicotine dependence, cigarettes, uncomplicated; F10.229 Alcohol dependence with intoxication, unspecified
CPT/HCPCS: 36415; 80048; 80053; 80076; 80307; 80320; 81001; 82550; 83735; 84100; 85025; 93005; 96361; 96372; 96374; 96375; 99218; 99282; 99406; J7030; A4216; G0378; G0480; J3486

== ENCOUNTER 2018-12-22 20:31 | Emergency (ER) | payer MEDICAID, SELFPAY ==
[2018-11-03 18:23] VITALS: BMI 23.5
[2018-12-22 20:33] VITALS: BP 159/85; PULSE 160; RESP 25; TEMP 37.1; O2SAT 100; BMI 25.3
--- NOTE | 2018-12-22 20:39 | EKG12_ITS ---
Test Reason : OVERDOSE Blood Pressure : / mmHG Vent. Rate : 134 BPM Atrial Rate : 134 BPM P-R Int : 140 ms QRS Dur : 092 ms QT Int : 300 ms P-R-T Axes : 067 074 062 degrees QTc Int : 448 ms Sinus tachycardia Possible Left atrial enlargement [id number] Borderline ECG Confirmed by SERGE RUIZ, JOS ([id number]), metropolitan editor JAYMIE BISHOP ([id number]) on 12/24/2018 12:25:33 PM Referred By: KONG Confirmed By:JOS VALENTINE MD
[2018-12-22 20:41] VITALS: BP 159/85; PULSE 145; RESP 30; O2SAT 100
[2018-12-22] MEDS: LORazepam 2 MG/ML Syringe IV (20:41)
[2018-12-22] MEDS: 0.9% Normal Saline 1,000 ML 999 ML IV ×2 (20:42→21:13)
[2018-12-22 20:54] LABS: Absolute Lymphocyte Count 2.47 X10^3/uL (0.83-4.51); Absolute Neutrophil Count 12.7 X10^3/uL (2.0-7.7); Basophil# 0.05 X10^3/uL; Basophil% 0.3 % (0-1); Eosinophil# 0.02 X10^3/uL; Eosinophils% 0.1 % (0-5); Hemoglobin 16.8 g/dL (13.0-16.5); Lymphocyte # 2.47 X10^3/ul (4.0); Lymphocyte % 14.7 % (19-41); Mean Corpuscular Hgb 31.5 pg (27.0-32.0); Mean Corpuscular Volume 89.9 fL (80-94); Mean Platelet Vol. 8.8 fl (6.2-12.0); Monocyte# 1.56 X10^3/uL; Monocyte% 9.3 % (0-10); NRBC Flagged by Analyzer 0 % (0-5); Neutrophil # 12.66 X10^3/uL (2.7-7.7); Neutrophil % 75.2 % (47-70); POSITIVE DIFFERENTIAL YES; Platelet Count 331 K/mm3 (150-450); RBC Distribution Width CV 13.1 % (11.6-14.6); RBC Distribution Width SD 42.9 fl (35.1-43.9); Red Blood Count 5.34 M/mm3 (4.6-6.2); White Blood Count 16.8 K/mm3 (4.4-11.0)
[2018-12-22 20:57] LABS: Differential Indicated SCAN CRITERIA MET
[2018-12-22 21:14] VITALS: BP 161/80; PULSE 119; RESP 19; O2SAT 97
[2018-12-22 21:14] LABS: ALB/GLOB Ratio 1.1 RATIO (0.9-2.4); AST(SGOT) 27 U/L (15-37); Alanine Aminotransfer ALT/SGPT 42 U/L (16-61); Albumin, Serum 4.4 g/dL (3.2-5.0); Alkaline Phosphatase 77 U/L (45-117); Anion Gap 14 (5-15); BUN 11 mg/dL (7-18); BUN/Creat Ratio 6.3 RATIO (10-20); CPK Total, Creatine Kinase 604 U/L (39-308); Calcium,Total 9.1 mg/dL (8.5-10.1); Chloride 102 mmol/L (98-107); Creatinine, Serum 1.74 mg/dL (0.70-1.30); EST Glomerular Filtration Rate 51 mL/min (>60); Est Glom Filt Rate - Afr Amer 61 mL/min (>60); Globulin 3.9 g/dL (2.2-4.2); Glucose 223 mg/dL (74-106); Potassium 3.5 mmol/L (3.5-5.1); Protein, Total 8.3 g/dL (6.4-8.2); Sodium Level 138 mmol/L (136-145)
[2018-12-22 21:19] LABS: Differential Comment SCANNED
[2018-12-22 21:31] LABS: Alcohol, Blood (Medical)-Serum < 3.0 mg/dL
[2018-12-22 22:08] VITALS: RESP 17
--- NOTE | 2018-12-22 22:24 | ED.DCSUM_ITS ---
- ER Visit Summary Date of Service: 12/22/18 Chief Complaint: Overdose History of Present Illness: The patient is a 27 M who presents for suspected overdose. Patient has a history of methamphetamine abuse. He is not providing any history. Patient has a history of acute kidney injury, rhabdomyolysis, psyc hosis, and depression. He also has a history of Xanax and heroin abuse, in addition to methamphetamines. Physical Examination: Afebrile. Heart rate 160 and respiratory rate 25. GCS is 11. Patient is looking about the room and making pelvic thrusting movements. He is diaphoretic. Head and neck are atraumatic. Neck is nontender. Heart is tachycardic but regular. Lungs are clear. Abdomen soft and nontender. Patient moves all extremities. No clonus. Test Results: EKG shows sinus rhythm at a rate of 134. No sign of acute ischemia or infarction pattern. White count 16.8 and hemoglobin 16.8. Glucose 223 and creatinine 1.74. Troponin normal. CK 604. Alcohol level was normal. Tox screen pending. Emergency Department Course and Treatment: Patient was placed on a monitor. IV access was obtained. He was treated with fluid bolus as well as Ativan. Patient has a leukocytosis, likely because of his intoxication. His creatinine is elevated from 0.7 up to 1.74. CK is only 604. The rest of his labs were fairly unremarkable. On reevaluation, blood pressure is 134/73 and heart rate is 108. Patient is alert. He is speaking and oriented. He tells me that he used methamphetamines this evening. Denies any other drug use. Denies any other complaints. We will continue to monitor the patient. I suspect he may be able to go home tonight. He has only had about 1 L of fluids. Will treat with the additional liter and recheck his BMP. If his creatinine has improved, I feel that he may be safely discharged for outpatient follow-up. Will reassess. Treatment Plan: As above Disposition: Pending Impression: 1. Methamphetamine intoxication This note was generated with [employer] software. It may contain incorrect words, spelling, and punctuation that were not noted in review of the chart prior to signing ED Disposition - Plan for ED Patient: Referrals: Care Physician,No Primary [Primary Care Provider] -
--- NOTE | 2018-12-22 22:28 | ED.DEP ---
ED Disposition - Plan for ED Patient: Instructions: Understanding Methamphetamine Abuse and Addiction Referrals: Annie Weathers [NON-STAFF] -
[2018-12-22 23:00] VITALS: BP 120/61; PULSE 111; RESP 18; O2SAT 98
[2018-12-22 23:31] LABS: Anion Gap 4 (5-15); BUN 10 mg/dL (7-18); BUN/Creat Ratio 8.9 RATIO (10-20); Calcium,Total 8.1 mg/dL (8.5-10.1); Chloride 109 mmol/L (98-107); Creatinine, Serum 1.12 mg/dL (0.70-1.30); EST Glomerular Filtration Rate 84 mL/min (>60); Est Glom Filt Rate - Afr Amer 102 mL/min (>60); Estimated Creatinine Clearance 100.82 ml/min; Glucose 77 mg/dL (74-106); Potassium 3.8 mmol/L (3.5-5.1); Sodium Level 140 mmol/L (136-145)
[2018-12-23 00:06] VITALS: BP 118/64; PULSE 86; PULSE 88; RESP 18
[2018-12-23 14:14] LABS: Pathologist Review Reviewed
== END 2018-12-23 00:07 | disposition home or self-care (01) ==
PROVIDERS: Emergency Provider Emergency Medicine
DX: F15.129 Other stimulant abuse with intoxication, unspecified (principal); F13.10 Sedative, hypnotic or anxiolytic abuse, uncomplicated; F11.10 Opioid abuse, uncomplicated; Z72.0 Tobacco use
CPT/HCPCS: 80048; 80053; 80320; 82550; 84484; 85025; 93005; 96361; 96374; 99285; J7030; A4216; G0480

== ENCOUNTER 2024-01-01 18:10 | Inpatient (IN) | payer OTHER, SELFPAY ==
[2024-01-01 18:15] VITALS: BP 148/88; PULSE 108; RESP 18; TEMP 36.1; O2SAT 97; BMI 34.1
--- NOTE | 2024-01-01 19:28 | EDS_ITS ---
HPI History of Present Illness Chief Complaint: Substance Abuse Detail of Chief Complaint: Requesting detox from alcohol Informant: patient Narrative Narrative: Patient presents to the emergency department with request for detox from [facility]. Patient drinks 6-8 drinks per day and has been doing it for about 5-1/2 years. Patient also complains of hearing voices since the age of 15. He is also having suicidal ideations. His last attempt to harm himself was in 2019 by overdosing on sleeping pills and then attempting to overdose on methamphetamines. He is never been admitted to a psychiatric facility. He denies any other medical history. He does describe nausea and vomiting frequently. PFSH PFS Medical History ETOH abuse Home Medications ?Medication ?Instructions ?Recorded ?Last Taken ?Type NK 03/02/18 Unknown History Allergy/AdvReac Type Severity Reaction Status Date / Time No Known Allergies Allergy Verified 01/01/24 18:13 Social History Smoking Status: Former smoker ROS ROS ED Review of Systems ROS Unobtainable: other Constitutional Constitutional ED: Reports lethargy; Denies chills, fever(s), sweats or weight loss Eyes Eyes: Denies blurry vision, change in vision or diplopia ENT ENT ED: Denies rhinorrhea or sore throat Cardiovascular Cardiovascular: Denies chest pain, orthopnea or racing heartbeat Respiratory/Chest Respiratory/Chest: Denies cough, dyspnea, dyspnea on exertion, orthopnea or sputum Gastrointestinal Gastrointestinal: Reports nausea and vomiting; Denies abdominal pain or diarrhea Genitourinary Genitourinary ED: Denies dysuria, hematuria or urinary frequency Musculoskeletal Musculoskeletal: Denies arthralgias, back pain, myalgias or neck pain Integumentary Denies abscess, Abrasions or rash Neurologic Neurologic: Denies headache(s) or weakness Psychiatric Psychiatric: Reports depression and suicidal thoughts; Denies anxiety Endocrine Endocrinology: Denies polydipsia, polyphagia or polyuria Hematologic/Lymphatic Hematologic/Lymphatic: Denies easy bleeding, easy bruising or lymphadenopathy Allergic/Immunologic Allergic/Immunologic ED: Denies mouth swelling, tongue swelling or urticaria EXAM Physical Exam Const Vital Signs: 01/01/24 18:15 01/01/24 19:56 Temperature 96.9 F L 98.4 F Temperature Source Temporal Oral Pulse Rate 108 H 100 Respiratory Rate 18 20 H Blood Pressure 148/88 H 146/89 H Blood Pressure Mean 108 108 Blood Pressure Source Monitor Blood Pressure Position Semi-Fowlers Blood Pressure Location Left Arm Pulse Ox 97 93 Oxygen Delivery Method Room Air Room Air Positive well nourished and well developed General Appearance ED: well developed and NAD HEENT Reports TM's clear and moist mucous membranes normocephalic and atraumatic; Negative for trauma or tenderness Tympanic Membrane ED: Yes TM's clear Eyes PERRL and EOMs intact bilaterally General Eye ED: Negative for pale conjunctiva or scleral icterus Neck no lymphadenopathy, supple and no JVD General: Negative for tenderness Chest Wall inspection of chest normal and palpation of chest normal Chest: Negative for tenderness Resp normal respiratory effort and clear to auscultation bilaterally Effort and Inspection: Negative for respiratory distress or pain with movement Auscultation: Negative for rhonchi, wheezes or diminished lung sounds Cardio regular rate, regular rhythm, S1 normal heart sound, S2 normal heart sound and no murmurs Peripheral Pulses: pulses 2+ throughout GI normal to inspection, nondistended, normoactive bowel sounds, soft to palpation, non-distended and no masses GI Narrative: Mild diffuse tenderness. There is no rebound, rigidity, or peritoneal signs. No mass palpated Back/Spine no CVA tenderness and no thoracic nor lumbar tenderness Extremity normal to inspection General Extremety ED: Negative for edema General Extremity: Negative for edema Neuro oriented x3, CN's II-XII intact bilaterally, no sensory deficits noted and gait normal Sensorium / Orientation: awake, alert, oriented to person, oriented to place and oriented to time Motor Exam: strength 5/5 throughout and strength abnormal Psych mental status grossly normal Skin no rashes or lesions noted and no wounds MDM MDM MDM Narrative Medical decision making narrative: Patient presents with alcohol intoxication and requesting detox from alcohol. Patient also hearing voices and having thoughts of running into traffic. Patient with remote history of suicidal attempts. IV line established. CBC with differential white count 7.1 with hemoglobin 15.9 and platelet count of 301. Chemistries show sodium of 147 with potassium of 3.8 and chloride 113. LFTs showed AST of 58 and ALT of 93 as well as alk phos of 69. Toxicology screen was negative. Alcohol was 304. Case discussed with hospitalist to evaluate patient for admission. Lab Data Attestation: I reviewed the patient's lab results. Labs: Laboratory Results - last 24 hr 01/01/24 01/01/24 19:20 20:23 WBC 7.1 RBC 5.08 Hgb 15.9 Hct 45.8 MCV 90.2 MCH 31.3 MCHC 34.7 RDW Std Deviation 39.5 RDW Coeff of Timothy 12.0 Plt Count 301 MPV 8.5 Immature Gran % (Auto) 0.600 Neut % (Auto) 55.1 Lymph % (Auto) 32.6 [place] % (Auto) 7.1 Eos % (Auto) 4.0 Baso % (Auto) 0.6 Absolute Neuts (auto) 3.9 Absolute Lymphs (auto) 2.30 Nucleated RBC % 0 Sodium 147 H Potassium 3.8 Chloride 113 H Carbon Dioxide 26.0 Anion Gap 8 BUN 12 Creatinine 1.01 Estim Creat Clear Calc 118.73 Est GFR (MDRD) Af Amer 111 Est GFR (MDRD) Non-Af 92 BUN/Creatinine Ratio 11.9 Glucose 136 H Calcium 8.5 Total Bilirubin 0.30 AST 58 H ALT 93 H Alkaline Phosphatase 69 Total Protein 7.8 Albumin 3.8 Globulin 4.0 Albumin/Globulin Ratio 1.0 Lipase 56 Urine Opiates Screen NEGATIVE Urine Methadone Screen NEGATIVE Ur Barbiturates Screen NEGATIVE Ur Phencyclidine Scrn NEGATIVE Ur Amphetamines Screen NEGATIVE MDMA (Ecstasy) Screen NEGATIVE U Benzodiazepines Scrn NEGATIVE Urine Cocaine Screen NEGATIVE U Cannabinoids Screen NEGATIVE Ur Drug Screen Comment Ethyl Alcohol 304.0 H* Discharge Plan Triage Chief Complaint: Substance Abuse ED Provider: Eleno Ryan Dx/Rx/DC Orders Clinical Impression: Admitted to alcohol detoxification center, Depression, Alcohol intoxication, Suicidal ideation Prescriptions: No Action NK Primary Care Provider: Care Physician,No Primary Referrals: Care Physician,No Primary [Primary Care Provider] - Print Language: Hungarian Disposition Disposition: Acute Care Hospital [facility]
[2024-01-01 19:51] LABS: Absolute Neutrophil Count 3.9 X10^3/uL (2.0-7.7); Basophil# 0.04 X10^3/uL; Basophil% 0.6 % (0-1); Eosinophil# 0.28 X10^3/uL; Hematocrit 45.8 % (40-54); Hemoglobin 15.9 g/dL (13.0-16.5); Lymphocyte % 32.6 % (19-41); Mean Corp Hgb Conc 34.7 g/dL (32-36); Mean Corpuscular Hgb 31.3 pg (27.0-32.0); Mean Corpuscular Volume 90.2 fL (80-94); Mean Platelet Vol. 8.5 fl (6.2-12.0); Monocyte% 7.1 % (0-10); NRBC Flagged by Analyzer 0 % (0-5); Neutrophil % 55.1 % (47-70); Platelet Count 301 K/mm3 (150-450); RBC Distribution Width SD 39.5 fl (35.1-43.9); Red Blood Count 5.08 M/mm3 (4.6-6.2); White Blood Count 7.1 K/mm3 (4.4-11.0)
[2024-01-01] MEDS: 0.9% Normal Saline (1000mL) 1,000 ML 1000 ML IV (19:52)
[2024-01-01] MEDS: Ondansetron 4 MG/2 ML Vial IV (19:52)
[2024-01-01 19:56] VITALS: BP 146/89; PULSE 100; RESP 20; TEMP 36.9; O2SAT 93
[2024-01-01 20:07] LABS: AST(SGOT) 58 U/L (15-37); Alanine Aminotransfer ALT/SGPT 93 U/L (16-61); Albumin, Serum 3.8 g/dL (3.2-5.0); Alkaline Phosphatase 69 U/L (45-117); Anion Gap 8 (5-15); BUN 12 mg/dL (7-18); BUN/Creat Ratio 11.9 RATIO (10-20); Calcium,Total 8.5 mg/dL (8.5-10.1); Chloride 113 mmol/L (98-107); Creatinine, Serum 1.01 mg/dL (0.70-1.30); EST Glomerular Filtration Rate 92 mL/min (>60); Est Glom Filt Rate - Afr Amer 111 mL/min (>60); Estimated Creatinine Clearance 118.73 ml/min; Glucose 136 mg/dL (74-106); Lipase 56 U/L (13-75); Potassium 3.8 mmol/L (3.5-5.1); Protein, Total 7.8 g/dL (6.4-8.2); Sodium Level 147 mmol/L (136-145)
[2024-01-01 20:55] LABS: Amphetamine Urine VISTA NEGATIVE (<1000 ng/mL); Barbiturate Urine VISTA NEGATIVE (< 200 ng/mL); Benzodiazepine Urine VISTA NEGATIVE (< 200 ng/mL); Cocaine Urine VISTA NEGATIVE (< 300 ng/mL); Ecstacy Urine VISTA NEGATIVE (< 500 ng/mL); Methadone Urine VISTA NEGATIVE (< 300 ng/mL); PCP Urine VISTA NEGATIVE (< 25 ng/mL); THC Urine VISTA NEGATIVE (< 50 ng/mL); Vista UDS pH Range 5
[2024-01-01 21:00] VITALS: BP 151/95; PULSE 97; RESP 16; O2SAT 99
[2024-01-01 21:37] VITALS: BP 151/95; PULSE 97; RESP 16; TEMP 36.6; O2SAT 99
[2024-01-01 21:51] LABS: International Normalized Ratio 1.2; Prothrombin Time (Protime)PT. 14.7 SECONDS (11.7-14.9)
[2024-01-01 21:59] VITALS: BMI 33.0
[2024-01-01 22:00] VITALS: BP 121/71; PULSE 88; RESP 16; TEMP 36.6; O2SAT 95
[2024-01-01] MEDS: traZODone 100 MG Tablet PO (22:27)
[2024-01-01] MEDS: Phenobarbital 32.4 MG Tablet PO (22:28)
[2024-01-01] MEDS: Acetaminophen 500 MG Tablet PO (22:28)
[2024-01-01] MEDS: hydrOXYzine PAM 25 MG Capsule 50 MG PO (22:28)
[2024-01-01 22:29] VITALS: BP 120/70; PULSE 90; RESP 16; TEMP 36.6; O2SAT 95
--- NOTE | 2024-01-01 22:40 | HP.PCM.HOS_ITS ---
HPI - General General Date of Admission: 01/01/24 Date of Service: 01/01/24 Chief Complaint: Alcohol intoxication HPI Narrative KRISTINA SANDHU, is a 33 M came to ED with alcohol intoxication. Last drink was 1400 hrs. today. He usually drinks beers 6 to 8/day. Patient having auditory hallucinations, suicidal thoughts with plan to walk into the traffic or use a shotgun as mentioned in triage note. Patient states that he is only drinks beer but on his birthday that was 2 days ago he drank liquor, 45% alcohol, Gin. Patient has been drinking for long time started as a teenager. He states whenever he tries to quit, he gets scary dreams, nightmares and hallucinations. He also has often suicidal thoughts. He had a history of 3 suicidal attempt in the past, last one 2018. Every times he overdosed himself. Patient also complaining of upper abdominal pain and states it is probably due to gastritis from drinking alcohol. Patient denies acute GI bleed like vomiting blood, hematemesis or melena. He never had EGD or colonoscopy Patient has sitter near the bedside [facility] Medical History Depression Anxiety Chronic pain GERD (gastroesophageal reflux disease) Former smoker Seizures ETOH abuse Home Medications ?Medication ?Instructions ?Recorded ?Last Taken ?Type NK 03/02/18 Unknown History Allergy/AdvReac Type Severity Reaction Status Date / Time No Known Allergies Allergy Verified 01/01/24 18:13 Social History Smoking Status: Former smoker ROS ROS Narrative 14 system ROS is limited because of patient's intoxication and elevation. Constitutional: Reports no fatigue and weakness. No fever. HEENT: Reports systems reviewed and no addt'l complaints, except as documented Respiratory/Chest: No acute shortness of breath or respiratory distress or wheezing. CVS: No chest pain or shortness of breath Gastrointestinal: Denies coffee ground emesis, hematemesis or vomiting. Had bright red rectal bleed in the past. Cannot remember exact, but no acute Genitourinary: Denies burning urination or new urinary tract symptoms Musculoskeletal: Denies acute joint pain or limited range of motion. No acute injury Neurologic: Denies seizure-like symptoms. Hallucinations positive skin: No ulcer. No rash Endocrinology: Reports systems reviewed and no addt'l complaints, except as documented Hematologic/Lymphatic: Reports systems reviewed and no addt'l complaints, except as documented Vital Signs Vital Signs Vital Signs: 01/01/24 18:15 01/01/24 19:56 01/01/24 21:00 Temperature 96.9 F L 98.4 F Temperature Source Temporal Oral Pulse Rate 108 H 100 97 Respiratory Rate 18 20 H 16 Blood Pressure 148/88 H 146/89 H 151/95 H Blood Pressure Mean 108 108 113 Blood Pressure Source Monitor Blood Pressure Position Semi-Fowlers Blood Pressure Location Left Arm Pulse Ox 97 93 99 Oxygen Delivery Method Room Air Room Air Room Air 01/01/24 21:37 01/01/24 22:00 01/01/24 22:29 Temperature 98 F 97.9 F 97.9 F Temperature Source Oral Oral Pulse Rate 97 88 90 Respiratory Rate 16 16 16 Blood Pressure 151/95 H 121/71 H 120/70 Blood Pressure Mean 113 87 86 Blood Pressure Source Monitor Monitor Blood Pressure Position Semi-Fowlers Semi-Fowlers Blood Pressure Location Left Arm Left Arm Pulse Ox 99 95 95 Oxygen Delivery Method Room Air Room Air Weight Weight: 204 lb 12.951 oz Body Mass Index (BMI) 33.0 Physical Exam Narrative General: Awake, cooperative, oriented to place and person and time HEENT: Atraumatic, PERRLA, EOMI, Normocephalic Oral: No Gingival or Mucosal Lesions/ Ulcerations Neck: Supple, No JVD, Negative Carotid Bruits Chest wall/Lungs: Air entry diminished in bilateral lung bases. No crepitation/rhonchi Cardiovascular: Regular rate, Regular Rhythm, Normal S1, Normal S2, No M/G/R Abdomen: Bowel Sounds Present, Soft, Non Tender, Non-Distended : No dysuria. No renal angle tenderness. No suprapubic tenderness. Extremities: No edema, Capillary Refill Less than 3 Seconds Skin: No rashes, No breakdown Musculoskeletal: No Tenderness to Palpation of Joints or Extremities Neurological: Cranial nerves II-XII grossly intact, DTR 2+/4. No acute focal neurological deficit. Psych/Mental Status: Flat affect, suicidal ideations Results Lab / Micro Data 01/01/24 19:20 01/01/24 19:20 Labs: Laboratory Results - last 24 hr 01/01/24 19:20: WBC 7.1, RBC 5.08, Hgb 15.9, Hct 45.8, MCV 90.2, MCH 31.3, MCHC 34.7, RDW Std Deviation 39.5, RDW Coeff of Timothy 12.0, Plt Count 301, MPV 8.5, Immature Gran % (Auto) 0.600, Neut % (Auto) 55.1, Lymph % (Auto) 32.6, [place] % (Auto) 7.1, Eos % (Auto) 4.0, Baso % (Auto) 0.6, Absolute Neuts (auto) 3.9, Absolute Lymphs (auto) 2.30, Nucleated RBC % 0, Sodium 147 H, Potassium 3.8, C hloride 113 H, Carbon Dioxide 26.0, Anion Gap 8, BUN 12, Creatinine 1.01, Estim Creat Clear Calc 118.73, Est GFR (MDRD) Af Amer 111, Est GFR (MDRD) Non-Af 92, BUN/Creatinine Ratio 11.9, Glucose 136 H, Calcium 8.5, Total Bilirubin 0.30, AST 58 H, ALT 93 H, Alkaline Phosphatase 69, Total Protein 7.8, Albumin 3.8, Globulin 4.0, Albumin/Globulin Ratio 1.0, Lipase 56, Ethyl Alcohol 304.0 H* 01/01/24 20:23: Urine Opiates Screen NEGATIVE, Urine Methadone Screen NEGATIVE, Ur Barbiturates Screen NEGATIVE, Ur Phencyclidine Scrn NEGATIVE, Ur Amphetamines Screen NEGATIVE, MDMA (Ecstasy) Screen NEGATIVE, U Benzodiazepines Scrn NEGATIVE, Urine Cocaine Screen NEGATIVE, U Cannabinoids Screen NEGATIVE, Ur Drug Screen Comment 01/01/24 21:33: PT 14.7, INR 1.2 Assessment & Plan Assessment/Plan (1) Suicidal ideation: (2) Alcohol intoxication: PLAN: Plan This is a 33-year-old gentleman with history of chronic alcohol use is admitted with acute alcohol intoxication 1. Acute alcohol intoxication with chronic alcohol use disorder, dependence, tolerance and hallucinations: Patient is being admitted to [facility] floor. Patient on phenobarbital based order set along with other adjunctive medications gabapentin, Bentyl, Vistaril, clonidine, Klonopin as needed for alcohol withdrawal symptom control. Patient is on thiamine and folate acid. CIWA monitor. wind operations manager 180 consulted. Patient is at high risk for going into alcohol withdrawal. Serum alcohol level 304. 2. Suicidal ideation with history of suicidal attempt in the past: Will need crisis management once patient is medically stable. 3. History of bipolar disorder with severe depression: Patient does not follow- up with psychiatrist. Patient not on any medication 4. Acute alcoholic hepatitis: ALT and AST are elevated. Previous ALT and AST were normal. INR 1.2 Patient also has upper abdominal, right and left upper quadrants tenderness. Right upper quadrant sonogram with spleen ordered. IV PPI pantoprazole 1 dose now and then oral from tomorrow. Monitor liver chemistry. 5. Hypernatremia and hyperchloremia possible due to dehydration: D5W 100 mL 1 L ordered. Monitor electrolytes 6. Hyperglycemia, possible due to alcohol use: A1c ordered for tomorrow AM. DVT prophylaxis, low risk. Early ambulation encouraged. Living will/advanced directive/end of life care: Patient does not have living will or advanced directive. Patient is not in right state of mind to discuss advanced directive. Essentially full code unverified order Laboratory Results 01/01/24 19:20: WBC 7.1, RBC 5.08, Hgb 15.9, Hct 45.8, MCV 90.2, MCH 31.3, MCHC 34.7, RDW Std Deviation 39.5, RDW Coeff of Timothy 12.0, Plt Count 301, MPV 8.5, Immature Gran % (Auto) 0.600, Neut % (Auto) 55.1, Lymph % (Auto) 32.6, [place] % (Auto) 7.1, Eos % (Auto) 4.0, Baso % (Auto) 0.6, Absolute Neuts (auto) 3.9, Absolute Lymphs (auto) 2.30, Nucleated RBC % 0, Sodium 147 H, Potassium 3.8, C hloride 113 H, Carbon Dioxide 26.0, Anion Gap 8, BUN 12, Creatinine 1.01, Estim Creat Clear Calc 118.73, Est GFR (MDRD) Af Amer 111, Est GFR (MDRD) Non-Af 92, BUN/Creatinine Ratio 11.9, Glucose 136 H, Calcium 8.5, Total Bilirubin 0.30, AST 58 H, ALT 93 H, Alkaline Phosphatase 69, Total Protein 7.8, Albumin 3.8, Globulin 4.0, Albumin/Globulin Ratio 1.0, Lipase 56, Ethyl Alcohol 304.0 H* 01/01/24 20:23: Urine Opiates Screen NEGATIVE, Urine Methadone Screen NEGATIVE, Ur Barbiturates Screen NEGATIVE, Ur Phencyclidine Scrn NEGATIVE, Ur Amphetamines Screen NEGATIVE, MDMA (Ecstasy) Screen NEGATIVE, U Benzodiazepines Scrn NEGATIVE, Urine Cocaine Screen NEGATIVE, U Cannabinoids Screen NEGATIVE, Ur Drug Screen Comment 01/01/24 21:33: PT 14.7, INR 1.2 Charges/Coding Visit Charges Inpatient E&M: 39606 Init Hosp L3
[2024-01-01] MEDS: Pantoprazole Sodium 40 MG in 0.9% Normal Saline (100mL MB+) 100 ML 330 MG IV (23:22)
[2024-01-02] VITALS (7 sets, daily range): BP systolic 107–157; BP diastolic 56–90; PULSE 68–90; RESP 16–18; TEMP 36.3–36.8; O2SAT 95–98
[2024-01-02] MEDS: Phenobarbital 32.4 MG Tablet PO ×6 (02:23→21:50)
--- NOTE | 2024-01-02 06:00 | US_ITS ---
STUDY: ABDOMINAL ULTRASOUND - RIGHT UPPER QUADRANT REASON FOR VISIT: Male, 33 years old Acute alcoholic hepatitis -- Including spleen TECHNIQUE: Ultrasound evaluation of the right upper quadrant was performed with real-time and static rodriguez-scale imaging. TECHNICAL QUALITY: Adequate. COMPARISON: None. FINDINGS: Liver: The liver is enlarged and measures 22.7 cm. There is increased echogenicity consistent with fatty infiltration. The bile ducts are within normal limits. There is hepatic color flow. The direction of portal flow is hepatopetal. There is no demonstrated mass lesion. Gallbladder: Normal distended gallbladder. The gallbladder wall measures 2 mm. There is a negative sonographic Wade''s sign. There is no pericholecystic fluid. There are no gallstones. Common Bile Duct (C.B.D.): The common bile duct measures 3 mm. Pancreas: Normal size of the head, body and tail of the pancreas. There is normal echogenicity of the pancreas. There is no demonstrated pancreatic mass or cyst. Right Kidney: Normal size of the right kidney. The right kidney measures 11.2 cm x 5.1 cm x 4.5 cm. Normal renal cortex. The right cortex measures 1.3 cm. There is no demonstrated renal mass or cyst. There is no right hydronephrosis. Spleen: There is evidence of splenomegaly. The spleen measures 14.2 cm x 5.9 cm x 4.7 cm. US/Abdomen Limited IMPRESSION: Hepatomegaly and fatty infiltration of the liver. Splenomegaly. Electronically Signed: Anthony Proctor MD at 12:53 EDT ,
[2024-01-02] MEDS: Dextrose 5%-Water (1000mL Bag) 1,000 ML 100 ML IV (06:31)
[2024-01-02 07:09] LABS: AST(SGOT) 37 U/L (15-37); Alanine Aminotransfer ALT/SGPT 66 U/L (16-61); Albumin, Serum 3.2 g/dL (3.2-5.0); Alkaline Phosphatase 54 U/L (45-117); Anion Gap 6 (5-15); BUN 12 mg/dL (7-18); BUN/Creat Ratio 13.1 RATIO (10-20); Calcium,Total 7.6 mg/dL (8.5-10.1); Chloride 114 mmol/L (98-107); Creatinine, Serum 0.92 mg/dL (0.70-1.30); EST Glomerular Filtration Rate 102 mL/min (>60); Est Glom Filt Rate - Afr Amer 124 mL/min (>60); Estimated Creatinine Clearance 124.14 ml/min; Globulin 3.1 g/dL (2.2-4.2); Glucose 94 mg/dL (74-106); Potassium 3.8 mmol/L (3.5-5.1); Protein, Total 6.3 g/dL (6.4-8.2); Sodium Level 144 mmol/L (136-145)
[2024-01-02 08:33] LABS: Hemoglobin A1c 5.5 % (3.8-5.6)
--- NOTE | 2024-01-02 08:49 | PCM.PN.HOSP ---
Reason for Visit Reason for Visit: Alcohol detox Subjective Subjective Patient is a 33-year-old white male who presented to the emergency department at [facility] on 01/01/2020 for requesting detoxification from alcohol. His last drink was at 1400 on 31 December. Patient reports that he usually drinks 6-8 beers daily. He did report that his birthday was 2 days ago when he drank liquor and 45% alcohol which was gin. He states has been drinking for a long time since he was a teenager and that whenever he tries to get sober he has scary dreams, nightmares and hallucinations. He indicates that he also often has suicidal thoughts with 3 previous suicide attempts his last being in 2019. Every time he states he is intentionally overdosed himself. He currently is having auditory hallucinations as well as suicidal thoughts with a plan to walk into traffic or use a shotgun. Vital signs on presentation showed temperature of 96.9, heart rate 108, respiratory was 18, blood pressure was 144/88 and pulse ox is 97% on room air. CBC was unremarkable. Coags are normal. Chemistry panel showed mild hyper natremia and hyperchloremia which have since resolved. Transaminases had mild elevation. Lipase was normal. Toxicology screen was negative except for blood alcohol level of 304 on presentation. He was placed in suicide precautions due to his suicidal ideation. He was admitted to the medical floor and placed on phenobarbital with CIWA and supportive medications. 180 was consulted. Patient states he is feeling better today. Only complains of some anxiety and mild tremor. Is anxious to eat some breakfast as he was n.p.o. for liver ultrasound Objective Data Objective Data Vital Signs: Vital Signs Temp Pulse Resp BP Pulse Ox O2 Del Method 98 F 78 16 107/56 L 95 Room Air 01/02/24 06:00 01/02/24 06:00 01/02/24 06:00 01/02/24 06:00 01/02/24 06:00 01/02/24 06:00 Oxygen Delivery Method Room Air Weight: 92.9 kg Body Mass Index (BMI) 33.0 Intake & Output: Intake and Output for Last 24 Hours 12/31/23 01/01/24 01/02/24 23:59 23:59 23:59 Intake Total 110 / 110 1000 / 1000 Balance 110 / 110 1000 / 1000 Lab / Micro Data 01/01/24 19:20 01/02/24 06:24 Labs: Laboratory Results - last 24 hr 01/01/24 19:20: WBC 7.1, RBC 5.08, Hgb 15.9, Hct 45.8, MCV 90.2, MCH 31.3, MCHC 34.7, RDW Std Deviation 39.5, RDW Coeff of Timothy 12.0, Plt Count 301, MPV 8.5, Immature Gran % (Auto) 0.600, Neut % (Auto) 55.1, Lymph % (Auto) 32.6, Howard % (Auto) 7.1, Eos % (Auto) 4.0, Baso % (Auto) 0.6, Absolute Neuts (auto) 3.9, Absolute Lymphs (auto) 2.30, Nucleated RBC % 0, Sodium 147 H, Potassium 3.8, Chloride 113 H, Carbon Dioxide 26.0, Anion Gap 8, BUN 12, Creatinine 1.01, Estim Creat Clear Calc 118.73, Est GFR (MDRD) Af Amer 111, Est GFR (MDRD) Non-Af 92, BUN/Creatinine Ratio 11.9, Glucose 136 H, Calcium 8.5, Total Bilirubin 0.30, AST 58 H, ALT 93 H, Alkaline Phosphatase 69, Total Protein 7.8, Albumin 3.8, Globulin 4.0, Albumin/Globulin Ratio 1.0, Lipase 56, Ethyl Alcohol 304.0 H* 01/01/24 20:23: Urine Opiates Screen NEGATIVE, Urine Methadone Screen NEGATIVE, Ur Barbiturates Screen NEGATIVE, Ur Phencyclidine Scrn NEGATIVE, Ur Amphetamines Screen NEGATIVE, MDMA (Ecstasy) Screen NEGATIVE, U Benzodiazepines Scrn NEGATIVE, Urine Cocaine Screen NEGATIVE, U Cannabinoids Screen NEGATIVE, Ur Drug Screen Comment 01/01/24 21:33: PT 14.7, INR 1.2 01/02/24 06:24: Sodium 144, Potassium 3.8, Chloride 114 H, Carbon Dioxide 25.0, Anion Gap 6, BUN 12, Creatinine 0.92, Estim Creat Clear Calc 124.14, Est GFR (MDRD) Af Amer 124, Est GFR (MDRD) Non-Af 102, BUN/Creatinine Ratio 13.1, Glucose 94, Hemoglobin A1c 5.5, Calcium 7.6 L, Total Bilirubin 0.30, AST 37, ALT 66 H, Alkaline Phosphatase 54, Total Protein 6.3 L, Albumin 3.2, Globulin 3.1, Albumin/Globulin Ratio 1.0, Ethyl Alcohol 147.0 Physical Exam Const alert, oriented x3, no apparent distress and well nourished; Negative for average body habitus or healthy appearing Constitutional Narrative: Obese, middle-aged, white male, lying in bed, sitter at bedside, patient appears comfortable, nontoxic HEENT head/scalp atraumatic and moist oral mucous membranes HEENT Narrative: Mallampati 3, no thrush Head and Scalp: normocephalic Resp normal respiratory effort, no retractions, no use of accessory muscles and clear to auscultation bilaterally Auscultation: Negative for rales, rhonchi or wheezes Cardio regular rate, regular rhythm, S1 normal heart sound, S2 normal heart sound, no murmurs, no rub, no gallops and no clicks GI normal to inspection, nondistended, normoactive bowel sounds, soft to palpation and non-tender Extremity no clubbing, cyanosis or edema Extremity Narrative: Pedal pulses are 2+ Neuro oriented x3, moves all extremities and no focal motor deficits Speech: speech normal Psych Psych Narrative: Affect is flat, patient is withdrawn, eye contact is poor, patient seems depressed Assessment & Plan Assessment/Plan (1) Suicidal ideation: (2) Alcohol intoxication: (3) Alcohol abuse: PLAN: Plan Chronic alcohol abuse with pending withdrawal and request for detoxification -Was intoxicated with a blood alcohol level of 304 on admission -Continue phenobarbital taper -Continue thiamine and folate -Continue supportive medications for withdrawal symptoms -CIWA protocol added with as needed Ativan -180 consultation for assistance with discharge planning Suicidal ideation -Suicide precautions -Patient is having auditory hallucinations and does have a plan -May need psychiatric admission once medically ready -Crisis to evaluate Mild acute alcoholic hepatitis -Slowly improving -Ultrasound of liver shows hepatic steatosis and splenomegaly as expected with chronic alcohol use -No need to follow any further at this time Hypernatremia/hyperchloremia -Resolved Hyperglycemia -Resolved -A1c was within normal limits History of bipolar disorder with severe depression -Does not follow with psychiatrist and is not on any medications -Currently having auditory hallucinations Obesity -BMI is 33.1 -Recommend weight loss -Complicates treatment, prognosis, outcomes DVT prophylaxis -Low risk -Encourage frequent and early ambulation CODE STATUS -Full code I did get a message from case management that his mother had called in and wanted updated with regards to the plan. I did call and left a message as she did not answer the phone. Charges/Coding Visit Charges Inpatient E&M: 58736 Subs Hosp L2
[2024-01-02] MEDS: Pantoprazole Sodium 40 MG Tablet PO (09:49)
[2024-01-02] MEDS: 0.9% Saline Lock 10 ML Syringe IV (09:49)
[2024-01-02] MEDS: Folic Acid 1 MG Tablet PO (09:49)
[2024-01-02] MEDS: Thiamine Hydrochloride 100 MG Tablet PO (09:49)
--- NOTE | 2024-01-02 11:59 | CASEMGMT ---
Social Work- SW attempted to meet with pt to conduct SDOH assessment. Pt sleeping and not able to be easily roused. SW will continue to follow. CANDICE Newman
--- NOTE | 2024-01-02 15:01 | CASEMGMT ---
Social Work- SW met with pt to conduct SDOH. Pt reports that he has concerns about transportation to work; SW provided transportation list. Pt denied any other needs; declined any other resources. Pt declined PCP list or [facility] information. SW verified that pt mom is able to be contacted/information shared. SW remains available to follow. CANDICE Newman
[2024-01-02] MEDS: Dicyclomine 10 MG Capsule 20 MG PO (21:49)
[2024-01-02] MEDS: traZODone 100 MG Tablet PO (21:50)
[2024-01-03 02:38] VITALS: BP 148/87; PULSE 73; RESP 16; TEMP 36.6; O2SAT 95
[2024-01-03] MEDS: Phenobarbital 32.4 MG Tablet PO ×6 (02:40→21:08)
[2024-01-03 06:18] VITALS: BP 138/95; PULSE 67; RESP 16; TEMP 36.4; O2SAT 99
[2024-01-03 09:40] VITALS: BP 135/92; PULSE 66; RESP 16; TEMP 36.4; O2SAT 100
--- NOTE | 2024-01-03 09:56 | CASEMGMT ---
Addendum entered by Kyleigh Snow 01/03/24 12:00: PT chose provider. RNCARLITO to schedule appointment for pt. SW remains available to follow for any additional needs. CANDICE Trujillo Original Note: Social Work- SW met with pt to present [employer] disability papers for his work that were sent in by his mom. Pt states that he is interested in having papers completed. SW educated that pt will need to have a PCP to complete paperwork. SW provided Annie Weathers and [facility] PCP lists. SW will follow up. SW left ST disability paperwork with pt. CANDICE Trujillo
[2024-01-03 10:09] LABS: GGTP 139 IU/L (0-65)
[2024-01-03] MEDS: Folic Acid 1 MG Tablet PO (10:14)
[2024-01-03] MEDS: Thiamine Hydrochloride 100 MG Tablet PO (10:14)
[2024-01-03] MEDS: Pantoprazole Sodium 40 MG Tablet PO (10:14)
[2024-01-03] MEDS: Loperamide 2 MG Capsule PO ×2 (10:17→21:08)
--- NOTE | 2024-01-03 10:49 | PCM.PN.HOSP ---
Reason for Visit Reason for Visit: Alcohol detox Subjective Subjective Patient has no specific complaints today. He reports that he is having no nausea or vomiting. He complains of some internal tremor and anxiety. He does not have any significant external tremor. He states he has had some intermittent loose stool but otherwise is feeling okay today. He states he does not feel safe going home and that he will be a harm to himself and is totally committed to going somewhere if need be. I told him we would probably have crisis see him tomorrow as long as he remains medically stable. Objective Data Objective Data Vital Signs: Vital Signs Temp Pulse Resp BP Pulse Ox O2 Del Method 97.6 F L 66 16 135/92 H 100 Room Air 01/03/24 09:40 01/03/24 09:40 01/03/24 09:40 01/03/24 09:40 01/03/24 09:40 01/03/24 09:40 Oxygen Delivery Method Room Air Weight: 92.9 kg Body Mass Index (BMI) 33.0 Intake & Output: Intake and Output for Last 24 Hours 01/01/24 01/02/24 01/03/24 23:59 23:59 23:59 Intake Total 110 / 110 2750 / 2750 Balance 110 / 110 2750 / 2750 Lab / Micro Data 01/01/24 19:20 01/02/24 06:24 Labs: Laboratory Results - last 24 hr 01/02/24 06:24: GGT 139 H Radiography Diagnostic Testing: Radiology Impression Abdomen Ultrasound 01/02/24 06:00 IMPRESSION: Hepatomegaly and fatty infiltration of the liver. Splenomegaly. Electronically Signed: Anthony Proctor MD at 12:53 EDT , Physical Exam Const alert, oriented x3, no apparent distress and well nourished; Negative for average body habitus or healthy appearing Constitutional Narrative: Obese, middle-aged, white male, lying in bed, sitter at bedside, patient appears comfortable, nontoxic HEENT head/scalp atraumatic and moist oral mucous membranes Head and Scalp: normocephalic Extremity Extremity Narrative: Pedal pulses are 2+ Neuro oriented x3, moves all extremities and no focal motor deficits Speech: speech normal Psych Psych Narrative: Affect is flat, patient is withdrawn, but eye contact is better today and there was more interaction, patient seems depressed Assessment & Plan Assessment/Plan (1) Suicidal ideation: (2) Alcohol intoxication: (3) Alcohol abuse: PLAN: Plan Chronic alcohol abuse with pending withdrawal and request for detoxification -Was intoxicated with a blood alcohol level of 304 on admission -Continue phenobarbital taper -Continue thiamine and folate -Continue supportive medications for withdrawal symptoms -CIWA protocol added with as needed Ativan -180 consultation for assistance with discharge planning Suicidal ideation -Suicide precautions -Patient is having auditory hallucinations and does have a plan -May need psychiatric admission once medically ready -Crisis to evaluate likely tomorrow Mild acute alcoholic hepatitis -Slowly improving -Ultrasound of liver shows hepatic steatosis and splenomegaly as expected with chronic alcohol use -Discussed with patient and did inform them that if he stops drinking alcohol much of this could be expected to be reversed but if he continues to drink he will have progressive liver disease which will eventually end up being a repairable -No need to follow any further at this time History of bipolar disorder with severe depression -Does not follow with psychiatrist and is not on any medications -Currently having auditory hallucinations Obesity -BMI is 33.1 -Recommend weight loss -Complicates treatment, prognosis, outcomes DVT prophylaxis -Low risk -Encourage frequent and early ambulation CODE STATUS -Full code Charges/Coding Visit Charges Inpatient E&M: 24391 Subs Hosp L1
--- NOTE | 2024-01-03 11:58 | CASEMGMT ---
POLLY CM into pt room, pt sitting up in bed eating lunch with sitter at bedside. Pt states he has chosen a PCP, . Pt prefers first available appt and in the afternoon. TC to 's office to set this up, left vm with appt line requesting returned call.
--- NOTE | 2024-01-03 15:02 | CHAPLAIN ---
Type of Pastoral Visit _x__ Initial Visit ___ Follow-up Visit ___ On-call Visit ___ General Patient Visit ___ Spiritual Assessment ___ Family Conference ___ Bereavement ___ Rapid Response ___ Code Blue ___ Other (describe below) Pastoral Care Referral From _x__ Patient ___ Family ___ Nurse ___ Physician ___ Box Worker ___ Crime Scene Examiner ___ Other (describe below) Sacrament/Intervention _x__ Active listening ___ Anointing ___ Spiritism ___ Bereavement ___ Communion _x__ Fernanda exploration ___ _x__ Life review _x__ Prayer ___ Reconciliation ___ Sacrament of Sick _x__ Supportive presence ___ Wedding ___ Other (describe below) Pastoral Comments patient is willing to talk about his alcohol abuse and addictions; pt gives life review and current status of life; pt admits to being isolated except for working; pt acknowledges that he made statements about wanting to which was a cry for God and a cry for help; pt shows some understanding of underlying issues and that there can be changes and new interventions for him that can help; pt is willing to go to rehab although is waiting on the chemical dependency counselor to return tomorrow for more information; pt has several family members and a few friends that he considers supportive; pt states that he is a person that believes and I used to go to [employer]; pt is affirmed in his search for spiritual help; pt is affirmed in his potential methods of recovery; pt welcomes presence and prayer for support
[2024-01-03 18:33] VITALS: BP 130/87; PULSE 87; RESP 16; TEMP 36.5; O2SAT 98
[2024-01-03 20:08] VITALS: BP 144/88; PULSE 70; RESP 16; TEMP 36.9; O2SAT 98
[2024-01-03] MEDS: Dicyclomine 10 MG Capsule 20 MG PO (21:08)
[2024-01-04] MEDS: Phenobarbital 32.4 MG Tablet PO ×5 (01:54→23:57)
[2024-01-04 02:38] VITALS: BP 133/85; PULSE 64; RESP 16; TEMP 36.7; O2SAT 97
[2024-01-04] MEDS: Folic Acid 1 MG Tablet PO ×2 (09:58)
[2024-01-04] MEDS: Pantoprazole Sodium 40 MG Tablet PO (09:58)
[2024-01-04] MEDS: Thiamine Hydrochloride 100 MG Tablet PO (09:58)
[2024-01-04 10:05] VITALS: BP 119/79; PULSE 66; RESP 14; TEMP 36.8; O2SAT 97
--- NOTE | 2024-01-04 11:02 | NURSING ---
talked with Peg from Crisis regarding eval as medically cleared per Dr. bloom
--- NOTE | 2024-01-04 12:58 | NURSING ---
talked with Rishi from crisis regarding request of ETA for child daycare worker. Aware Tita child daycare worker will be over but she has one other patient to see first. Dr. Pagan updated.
[2024-01-04 14:00] VITALS: BP 127/76; PULSE 63; RESP 14; TEMP 36.6; O2SAT 97
--- NOTE | 2024-01-04 15:28 | NURSING ---
talked with patient and case mgmt about question if patient has insurance. pt states may call his mother to see if she has any information. also may call his boss John Song at [phone] mother nora called [facility] pt's boss had sent him a message with the insurance information the first day he was here. [facility] insurance is [employer] group ID is [id number]. information being given to registration.
--- NOTE | 2024-01-04 16:49 | PCM.PN.HOSP ---
Reason for Visit Reason for Visit: Alcohol detox Subjective Subjective Patient has no complaints. He denies any symptoms consistent with withdrawal. Admits that he feels like he needs to go somewhere for help with mental health. Objective Data Objective Data Vital Signs: Vital Signs Temp Pulse Resp BP Pulse Ox O2 Del Method 97.9 F 63 14 127/76 H 97 Room Air 01/04/24 14:00 01/04/24 14:00 01/04/24 14:00 01/04/24 14:00 01/04/24 14:00 01/04/24 14:00 Oxygen Delivery Method Room Air Weight: 92.9 kg Body Mass Index (BMI) 33.0 Intake & Output: Intake and Output for Last 24 Hours 01/02/24 01/03/24 01/04/24 23:59 23:59 23:59 Intake Total 2750 / 2750 950 / 950 800 / 800 Balance 2750 / 2750 950 / 950 800 / 800 Lab / Micro Data 01/01/24 19:20 01/02/24 06:24 Physical Exam Const alert, oriented x3, no apparent distress and well nourished; Negative for average body habitus or healthy appearing Constitutional Narrative: Obese, middle-aged, white male, lying in bed, sitter at bedside, patient appears comfortable, nontoxic HEENT head/scalp atraumatic Head and Scalp: normocephalic Neuro oriented x3, moves all extremities and no focal motor deficits Speech: speech normal Psych Negative for affect normal Psych Narrative: Affect is flat, patient is withdrawn but less so than at first evaluation, makes good eye contact today Mood & Affect: depressed Assessment & Plan Assessment/Plan (1) Suicidal ideation: (2) Alcohol intoxication: (3) Alcohol abuse: PLAN: Plan Chronic alcohol abuse with pending withdrawal and request for detoxification -Was intoxicated with a blood alcohol level of 304 on admission -Continue phenobarbital taper -Continue thiamine and folate -Continue supportive medications for withdrawal symptoms -CIWA protocol added with as needed Ativan - will need outpatient follow-up after discharge from psychiatric facility -Medically stable for evaluation by crisis Suicidal ideation -Suicide precautions -Patient is having auditory hallucinations and does have a plan -Crisis has evaluated and plan is for placement once can be arranged Mild acute alcoholic hepatitis -Slowly improving -Ultrasound of liver shows hepatic steatosis and splenomegaly as expected with chronic alcohol use -Discussed with patient and did inform them that if he stops drinking alcohol much of this could be expected to be reversed but if he continues to drink he will have progressive liver disease which will eventually end up being a repairable -No need to follow any further at this time History of bipolar disorder with severe depression -Does not follow with psychiatrist and is not on any medications -Currently having auditory hallucinations Obesity -BMI is 33.1 -Recommend weight loss -Complicates treatment, prognosis, outcomes DVT prophylaxis -Low risk -Encourage frequent and early ambulation CODE STATUS -Full code Charges/Coding Visit Charges Inpatient E&M: 22870 Subs Hosp L1
--- NOTE | 2024-01-04 17:46 | NURSING ---
talked with Stefanie in registration. states she received a phone call from pt's mother Kylah in regards to pt's insurance. pt's mother is now stating it is believed that when pt was given the opportunity to sign up for insurance pt infact opted to only sign up for vision, not medical insurance. This information was relayed to Johnny at crisis.
[2024-01-04 18:15] VITALS: BP 128/81; PULSE 70; RESP 16; TEMP 36.7; O2SAT 98
[2024-01-04 19:38] VITALS: O2SAT 96
--- NOTE | 2024-01-04 21:19 | NURSING ---
Samson called and patient has been referred to [facility]. they may call with acceptance or with questions. samson's number is [phone]
--- NOTE | 2024-01-04 21:41 | NURSING ---
Courtney from [facility] called and wanted to know if the [facility] was able to obtain funding to pay for the patient's treatment. Courtney [phone]
--- NOTE | 2024-01-04 21:45 | NURSING ---
Courtney from [facility] called back and stated she has a fax stating the [facility] has authorized treatment for 7 days. Courtney asked to speak to primary rn. Primary RN to call Courtney.
[2024-01-04 22:14] VITALS: BP 149/68; PULSE 72; RESP 16; TEMP 36.6; O2SAT 98
--- NOTE | 2024-01-04 22:27 | NURSING ---
Talked with Courtney from [facility]; nurse to nurse completed; pt accepted to [facility] by Dr. Wade. Transport to be set up.
--- NOTE | 2024-01-04 22:57 | NURSING ---
transport set up for 01/05/2024 at 0900.
[2024-01-05 02:54] VITALS: BP 142/82; PULSE 79; RESP 16; TEMP 36.8; O2SAT 98
[2024-01-05] MEDS: Phenobarbital 32.4 MG Tablet PO (05:55)
--- NOTE | 2024-01-05 07:48 | NURSING ---
mother nora updated on transfer.
--- NOTE | 2024-01-05 09:02 | DS.PCM_ITS ---
Providers Date of Admission: 01/01/24 Date of Discharge: 01/05/24 Primary Care Physician: No Primary Care Phys Reason For Visit: ALCOHOL WITHDRAWAL Diagnosis Discharge Diagnosis (1) Suicidal ideation: Status: Acute Code(s): R45.851 - Suicidal ideations (2) Alcohol intoxication: Status: Acute Code(s): F10.929 - Alcohol use, unspecified with intoxication, unspecified (3) Alcohol abuse: Status: Acute Code(s): F10.10 - Alcohol abuse, uncomplicated Medications at Discharge Home Medications NK 03/02/18 Hospital Course Operations None Procedures - (Abdominal ultrasound) Summary of Care Provided Minutes Spent on Discharge: 27 Hospital Course: Mr. Finley is a 33-year-old white male who presented to the emergency department at [facility] on 01/01/2020 for requesting detoxification from alcohol. His last drink was at 1400 on 31 December. Patient reports that he usually drinks 6-8 beers daily. He did report that his birthday was 2 days ago when he drank liquor and 45% alcohol which was gin. He states has been drinking for a long time since he was a teenager and that whenever he tries to get sober he has scary dreams, nightmares and hallucinations. He indicates that he also often has suicidal thoughts with 3 previous suicide attempts his last being in 2019. Every time he states he is intentionally overdosed himself. He currently is having auditory hallucinations as well as suicidal thoughts with a plan to walk into traffic or use a shotgun. Vital signs on presentation showed temperature of 96.9, heart rate 108, respiratory was 18, blood pressure was 144/88 and pulse ox is 97% on room air. CBC was unremarkable. Coags are normal. Chemistry panel showed mild hyper natremia and hyperchloremia which have since resolved. Transaminases had mild elevation. Lipase was normal. Toxicology screen was negative except for blood alcohol level of 304 on presentation. He was placed in suicide precautions due to his suicidal ideation. He was admitted to the medical floor and placed on phenobarbital with CIWA and supportive medications. 180 was consulted. Since his transaminases were up the admitting physician ordered an ultrasound of his abdomen he was noted to have hepatosteatosis and mild splenomegaly consistent with his alcohol use. I did discuss the results with him and informed him that if he continues to drink he will likely develop cirrhosis, however, if he is able to abstain that his liver could recover. His detox was overall uneventful. He did quite well. Once his CIWA had improved dramatically we did consult crisis for evaluation. They do feel he is appropriate for placement in psychiatric facility due to concern of suicidal ideations with a plan and previous attempts and he will be discharged inpatient psychiatric hospital. A bed became available early on the morning of 01/05/2024. 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 * Patients 75 years or YOUNGER should receive HIGH intensity statin dose unless contraindicated. You will be required to document reason for non-treatment if statin daily dose does not meet guidelines. HIGH DOSE STATIN THERAPY DAILY Atorvastatin > than or = to 40 mg Rosuvastatin > than or = to 20 mg Amlodipine + Atorvastatin > than or = to 2.5/40 mg Ezetimibe + Simvastatin 10/80 mg Simvastatin 80mg Discharge Plan Admission Admit Date/Time: 01/01/24 21:01 Primary Reason for Your Visit: Alcohol detox Attending Provider: Deedee Pagan Primary Care Provider: Care Physician,Carla Primary Consulting Providers: Ronak Mendoza Discharge Orders/Prescriptions Prescriptions: No Action NK Referrals / Follow Up: Care Physician,No Primary [Primary Care Provider] - Disposition Disposition (needs filled in before D/C Order can be placed): Psychiatric Hospital or Unit
== END 2024-01-05 07:58 | DRG 897 ==
LOC: ED 21:11 → MS3 21:34
PROVIDERS: Admitting Provider Internal Medicine; Emergency Provider Emergency Medicine; Visit Provider Internal Medicine
DX: F10.129 Alcohol abuse with intoxication, unspecified (principal); E87.0 Hyperosmolality and hypernatremia; R44.0 Auditory hallucinations; R45.851 Suicidal ideations; K70.10 Alcoholic hepatitis without ascites; F31.9 Bipolar disorder, unspecified; Z68.33 Body mass index [BMI] 33.0-33.9, adult; F10.139 Alcohol abuse with withdrawal, unspecified; E87.8 Other disorders of electrolyte and fluid balance, not elsewhere classified; F41.9 Anxiety disorder, unspecified; K21.9 Gastro-esophageal reflux disease without esophagitis; E86.0 Dehydration; R16.1 Splenomegaly, not elsewhere classified; Y90.8 Blood alcohol level of 240 mg/100 ml or more; R73.9 Hyperglycemia, unspecified; E66.9 Obesity, unspecified; Z87.891 Personal history of nicotine dependence; Z91.51 Personal history of suicidal behavior
CPT/HCPCS: 36415; 76705; 80053; 80307; 82077; 82977; 83036; 83690; 85025; 85610; 97802; 99285; J7030; A4216; J2405